=== PATIENT | female | born 1970 | race Caucasian/White ===

== ENCOUNTER 2019-04-26 08:17 | Outpatient (CLI) | payer OTHER, SELFPAY ==
--- NOTE | ~2019-04-26 | CT_ITS ---
EXAMINATION: CT abdomen pelvis w con DATE: 04/26/2019 08:56 INDICATION: Colon cancer. TECHNIQUE: Computed tomography (CT) of the abdomen and pelvis was performed with 100 cc Omnipaque 350 intravenous contrast. The dose-length product was 1056.86 mGy-cm. Automated exposure control and ite rative reconstruction technique were employed. COMPARISON: Comparison to multiple prior studies sequentially, with oldest reviewed study dated 09/16. FINDINGS: Lung bases are unremarkable. Heart size normal. No pleural or pericardial effusion. No significant vascular abnormality. No lymphadenopathy. The liver, spleen, pancreas, adrenal glands and kidneys are unremarkable. There is an umbilical herni a containing nonobstructed bowel. Status post right hemicolectomy. No bowel obstruction. No focal bow el masses are identified. Colonic diverticulosis without diverticulitis. No abnormal pelvic masses or fluid collections. Small bone island in the right sacrum. No new lytic or blastic lesions. IMPRESSION: 1. Postoperative changes consistent with right hemicolectomy without evidence for residual/recurrent malignancy. 2: Widemouth umbilical hernia containing nonobstructed bowel. Reviewed, dictated and finalized at location A. [employer]ET[employer] WORKER IMPRESSION: 1. Postoperative changes consistent with right hemicolectomy without evidence f or residual/recurrent malignancy. 2: Widemouth umbilical hernia containing nonobstructed bowel.
== END 2019-04-26 08:18 | disposition home or self-care (01) ==
LOC: ANHIMG 08:18
PROVIDERS: PCP Internal Medicine; Visit Provider Internal Medicine Hematology & Oncology
DX: C18.2 Malignant neoplasm of ascending colon (principal); Z90.49 Acquired absence of other specified parts of digestive tract; K42.9 Umbilical hernia without obstruction or gangrene
CPT/HCPCS: 74177; Q9967

== ENCOUNTER 2019-08-26 15:50 | Outpatient (CLI) | payer OTHER, SELFPAY ==
[2019-08-26 16:11] LABS: Basophils Absolute Auto 0.1 K/mm3 (0.0-0.1); Eosinophils Absolute Auto 0.6 K/mm3 (0-0.3); Eosinophils Percent Auto 7.5 % (0-4.4); Hematocrit 42.1 % (37.0-47.0); Hemoglobin 13.7 g/dL (12.0-15.0); Immature Granulocyte Absolute 0.01 K/mm3 (0.00-0.031); Immature Granulocyte Percent A 0.1 % (0-0.5); Lymphocytes Absolute Auto 2.09 K/mm3 (0.9-3.2); Lymphocytes Percent Auto 25.7 % (18.3-44.2); Mean Corpuscular HGB Conc 32.5 g/dl (32-36); Mean Corpuscular Hemoglobin 29.7 pg (26-34); Mean Corpuscular Volume 91.1 fl (80-100); Mean Platelet Volume 10.2 fl (7.4-10.4); Monocytes Absolute Auto 0.8 K/mm3 (0.1-0.6); Monocytes Percent Auto 9.2 % (2.6-8.5); Neutrophils Absolute Auto 4.6 K/mm3 (1.3-6.7); Neutrophils Percent Auto 56.5 % (45.5-73.1); Platelet Count Result 230 k/mm3 (150-375); Red Blood Count 4.62 M/mm3 (4.2-5.4); Red Cell Distribution Width 13.1 % (11.5-14.5); White Blood Count 8.1 K/mm3 (4.5-10.0)
[2019-08-26 16:46] LABS: Alanine Aminotransferase 37 U/L (4-35); Albumin Level 4.7 g/dL (3.5-5.1); Alkaline Phosphatase 98 U/L (38-126); Aspartate Amino Transferase 41 U/L (14-36); Bilirubin,Total 0.4 mg/dL (0.2-1.3); Blood Urea Nitrogen 18 mg/dL (7-17); Calcium 9.6 mg/dL (8.4-10.2); Carbon Dioxide 29 mmol/L (22-30); Chloride 101 mmol/L (98-107); Estimated Glomerular Filt Rate > 60; Glucose 104 mg/dL (65-105); Potassium 4.6 mmol/L (3.4-5.0); Sodium 137 mmol/L (137-145)
[2019-08-26 17:17] LABS: Carcinoembryonic Antigen 3.5 ng/mL (0.0-3.0)
== END 2019-08-26 15:51 | disposition home or self-care (01) ==
LOC: ANHLAB 15:52
PROVIDERS: Visit Provider Internal Medicine Hematology & Oncology
DX: C18.2 Malignant neoplasm of ascending colon (principal)
CPT/HCPCS: 36415; 80053; 82378; 85025

== ENCOUNTER 2019-09-13 08:01 | Outpatient (CLI) | payer OTHER, SELFPAY ==
--- NOTE | ~2019-09-13 | MM_ITS ---
EXAMINATION: MM screening [place] BI w thomas HISTORY: Screening mammogram TECHNIQUE: Craniocaudal and mediolateral oblique 3-D tomosynthesis images were obtained and synthetic 2-D images were generated. CAD analysis was submitted and interpreted. COMPARISON: 07/20/2018 BREAST PARENCHYMAL COMPOSITION: The breasts are heterogeneously dense, which may obscure small masses . FINDINGS: RIGHT BREAST: An asymmetry is present in the anterior third of the breast 3 cm from the nipple on the mediolateral oblique view (tomosynthesis image 53/97). There is a partially imaged Port-A-Cath which has been inserted on the right. LEFT BREAST: There is no evidence of suspicious mass, calcification, or architectural distortion to s uggest malignancy. There has been no significant interval change. IMPRESSION: 1. Right breast asymmetry on the mediolateral oblique view. 2. Additional mammographic views and possible breast ultrasound are recommended. BI-RADS Category 0: Incomplete: Needs additional imaging evaluation. Reviewed, dictated and finalized at location A. IMPRESSION: 1. Right breast asymmetry on the mediolateral oblique view. 2. Additional mammographic views and possible breast ultrasound are recommended . BI-RADS Category 0: Incomplete: Needs additional imaging evaluation.
== END 2019-09-13 08:02 | disposition home or self-care (01) ==
LOC: ANHIMG 08:03
PROVIDERS: PCP Advanced Practice Midwife; Visit Provider Advanced Practice Midwife
DX: Z12.31 Encounter for screening mammogram for malignant neoplasm of breast (principal); R92.8 Other abnormal and inconclusive findings on diagnostic imaging of breast
CPT/HCPCS: 77063; 77067

== ENCOUNTER 2019-10-04 13:07 | Outpatient (CLI) | payer OTHER, SELFPAY ==
--- NOTE | ~2019-10-04 | MMUS_ITS ---
EXAMINATION: MM diagnostic mammo unilat RT, US breast RT complete HISTORY: Mammographic asymmetry reported in anterior third of right breast 3 cm from nipple on 020 MLO screening view TECHNIQUE: Additional 3-D tomosynthesis images of the right breast were performed and synthetic 2-D i mages were generated. CAD analysis was submitted and interpreted. High resolution complete right [address] st ultrasound was performed. COMPARISON: 09/13/2019 bilateral digital screening mammogram 07/20/2018 bilateral digital screening mammogram FINDINGS: MAMMOGRAPHIC FINDINGS: Numerous punctate benign-appearing microcalcifications are noted. No suspicious mass or architectural distortion is evident. The heterogeneous dense stroma may obscure a mass however. ULTRASOUND: 1:00 4 cm from nipple: 2 x 3.3 mm parallel circumscribed sonolucency, likely a small cyst or other be nign process. 2:00 1 cm from nipple: 2.6 x 1.6 x 3.0 mm sonolucency or hypoechoic lesion without internal vasculari ty or posterior shadowing, likely benign 3:00 5 cm from nipple: Parallel circumscribed 5.0 x 7.8 x 2.7 mm sonolucency with through transmissio n posterior enhancement, consistent with small cyst 7:00 4 cm from nipple: 4.8 x 3.6 x 4.3 mm simple cyst with through transmission and posterior enhance ment 9:00 5 cm from nipple: 4.2 x 2.8 x 3.4 mm simple cyst with through transmission and posterior enhance ment No suspicious mass or shadowing is evident. IMPRESSION: 1. Benign findings 2. Routine annual mammographic screening is recommended BI-RADS Category 2: Benign finding(s). Reviewed, dictated and finalized at location A. IMPRESSION: 1. Benign findings 2. Routine annual mammographic screening is recommended BI-RADS Category 2: Benign finding(s).
== END 2019-10-04 13:08 | disposition home or self-care (01) ==
PROVIDERS: PCP Advanced Practice Midwife; Visit Provider Advanced Practice Midwife
DX: R92.8 Other abnormal and inconclusive findings on diagnostic imaging of breast (principal)
CPT/HCPCS: 76641; 77065

== ENCOUNTER 2019-11-22 06:45 | Outpatient (CLI) | payer OTHER, SELFPAY ==
--- NOTE | ~2019-11-22 | CT_ITS ---
EXAMINATION: CT abdomen pelvis w con DATE: 11/22/2019 07:33 INDICATION: Colon cancer. Six-month follow-up. TECHNIQUE: Computed tomography (CT) of the abdomen and pelvis was performed with 100 cc Omnipaque 350 intravenous contrast. The dose-length product was 1340.26 mGy-cm. Automated exposure control and ite rative reconstruction technique were employed. COMPARISON: CT dated 04/26/2019 FINDINGS: Lung bases are unremarkable. Heart size is normal. No significant pleural or pericardial ef fusion. No significant vascular abnormality. No lymphadenopathy. Fatty infiltration of the liver. The spleen, adrenal glands and kidneys are unremarkable. Gallbladder is present. There are changes of right hemicolectomy. There is a widemouth ventral hernia at the lev el of the umbilicus containing nonobstructed bowel. No free air or free fluid. Status post hysterecto my. No lytic or sclerotic lesions are seen. No acute osseous abnormality. IMPRESSION: 1. No evidence for residual/recurrent malignancy or metastatic disease. Reviewed, dictated and finalized at location B.
== END 2019-11-22 06:46 | disposition home or self-care (01) ==
PROVIDERS: Visit Provider Internal Medicine Hematology & Oncology
DX: C18.2 Malignant neoplasm of ascending colon (principal)
CPT/HCPCS: 74177; Q9967

== ENCOUNTER 2019-12-07 01:35 | Outpatient (CLI) | payer OTHER, SELFPAY ==
[2019-12-07 17:58] LABS: SARS-CoV-2 RNA PCR Negative
== END 2019-12-07 01:36 | disposition home or self-care (01) ==
LOC: ANHCOVIDDT 01:35
PROVIDERS: Visit Provider Surgery
DX: Z01.812 Encounter for preprocedural laboratory examination (principal); Z20.828 Contact with and (suspected) exposure to other viral communicable diseases
CPT/HCPCS: 87635; C9803; U0003

== ENCOUNTER 2019-12-10 00:50 | Day surgery (SDC) | payer OTHER, SELFPAY ==
[2019-11-26 10:04] VITALS: BMI 38.2
--- NOTE | 2019-12-10 12:08 | PM.HPGS ---
History of Present Illness History of Present Illness Consent: Risks, benefits, and alternatives of removal of a Port-A-Cath have been discussed and questions answered. Patient agrees to proceed with procedure. Chief complaint: Colon Ca Narrative: Lucia Lentz is a 49 year old female who fortunately developed right-sided colon cancer in September of 2017. She had a successful right hemicolectomy at that time. Since this time she has undergone several cycles of FOLFOX chemotherapy it ended on May 31, 2018. She also subsequently had a TAHBSO on October 22, 2018 which pathology showed no endometrial or ovarian tumors. Patient has completed her her need for chemotherapy and is seen at this time for removal of the port that had been placed to be used during crit chemotherapy. Patient did have a colonoscopy in [place] 1-2 months ago with the finding of 1 benign polyp. 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 Patient also had a CT scan of the abdomen pelvis within the last month that showed no signs of metastatic disease. The risks including bleeding or infection have been described to the patient and she is comfortable Having us remove this under local anesthetic. Review of Systems Constitutional: Constitutional: Reports no additional constitutional complaints, Reports fatigue and Denies malaise Eyes: Eyes: Denies change in vision and Denies loss of vision ENT: Reports Normal hearing present, Denies change in voice, Denies dizziness, Denies hoarseness and Denies sore throat Cardiovascular: Cardiovascular: Denies chest pain, Denies leg edema and Denies dyspnea Respiratory: Respiratory: Denies cough, Denies dyspnea and Denies wheezing Gastrointestinal: Gastrointestinal: Denies hematochezia, Denies change in bowel habits and Denies heartburn Genitourinary: Genitourinary: Denies urinary frequency and Denies urinary incontinence Comments: 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 because this is more frequently associated with some female tract cancers the patient did undergo a bilateral subcu for rectum E and total laparoscopic hysterectomy last year. Neurologic: Reports Normal hearing present, Denies confusion, Denies dizziness, Denies loss of vision, Denies memory loss and Denies seizure-like activity Psychiatric: Psychiatric: Denies confusion, Denies depression and Denies memory loss Endocrine: Endocrine: Denies cold intolerance and Reports fatigue Hematologic/Lymphatic: Hematologic/Lymphatic: Denies easy bleeding and Denies easy bruising Allergic/Immunologic: Allergic/Immunologic: Denies wheezing PMFSH Past Medical History Medical History Port-A-Cath in place (2018) Social History Social History Smoking status: Never smoker Alcohol intake: never Meds Home Medications and Allergies Home Medications Medication Instructions Recorded Confirmed Type calcium citrate-vitamin D3 1 tablet PO DAILY 11/26/19 12/10/19 History [Citracal + D Maximum] multivit [id number] 186 1 tablet PO DAILY 11/26/19 12/10/19 History [Hair, Skin and Nails Advanced] multivitamin 1 tablet PO DAILY 11/26/19 12/10/19 History Allergies Allergy/AdvReac Type Severity Reaction Status Date / Time Sulfa (Sulfonamide Allergy Severe LIPS/TONGUE Verified 12/10/19 13:13 Antibiotics) SWELLING Exam Const: General: cooperative, healthy appearing, no acute distress, well developed and alert; No confusion Nutritional Appearance: well nourished Orientation/consciousness: patient oriented x3 and No confusion Limitations: no limitations HENMT: Head: normal to inspection, normocephalic and atraumatic Ears: hearing grossly normal bilaterally General nose exam: Normal external nose present Face and sinus: no edema Mouth: Yes Normal oral and palatal mucosa present and Yes l
[2019-12-10 13:45] VITALS: BP 132/71; PULSE 72; RESP 16; TEMP 37.1; O2SAT 100
--- NOTE | 2019-12-10 14:13 | WPDHPUPDATE1 ---
History and Physical Update Update Date/Time: 12/10/19 14:13 History and Physical has been reviewed, including an updated exam of the patient. There are NO changes in the patient's condition. Risks, benefits, and alternatives of removal of a Port-A-Cath have been discussed and questions answered. Patient agrees to proceed with procedure.
[2019-12-10 14:40] VITALS: BP 148/77; PULSE 77; RESP 16; O2SAT 99
[2019-12-10] MEDS: LIDO 2%/EPINEPHRINE 1:100,000 20 ML VIAL 10 ML INFILTRATE (14:44)
[2019-12-10 14:50] VITALS: BP 130/72; PULSE 71; RESP 16; O2SAT 99
[2019-12-10 15:00] VITALS: BP 136/72; PULSE 78; RESP 16; O2SAT 99
[2019-12-10 15:10] VITALS: BP 133/73; PULSE 84; RESP 16; O2SAT 99
[2019-12-10 15:25] VITALS: BP 151/71; PULSE 78; RESP 16; O2SAT 100
--- NOTE | 2019-12-10 15:47 | P.OP_ITS ---
Procedure Note - Detailed Date of procedure: 12/10/19 Pre-op diagnosis: Colon Ca Indwelling Port-A-Cath Post-op diagnosis: same Procedure performed: Removal of Port-A-Cath Description of procedure: Prior to the procedure the patient was seen in the holding area and the area of proposed surgery was marked. All questions were answered and the patient wished to proceed with removal of the Port-A-Cath. The patient was brought to the operating room and placed supine. The entire right neck, chest, and shoulder were prepped with chlorhexidine. The area was draped off. Time-out was performed confirming patient and site of surgery. Following this a 15 blade knife was used to make incision directly on the scar from the previous port placement. This was done after infiltrating local anesthetic into the area of and inferior to the scar and into the area of the pocket containing the port to some degree using 2% xylocaine with epinephrine. Following this we carefully dissected down to the junction of the port and catheter. Bovie cautery with needle-tip was used to carefully incise the capsule around the port and free up the scar tissue around the junction of the port and catheter. Following this the port was brought up and out of the pocket. Then watching the patient's respirations I carefully removed the catheter in one smooth pull while applying pressure in the lower right neck area at the catheter exit site as the patient was breathing out. Pressure was held for 1 minute. I used Bovie cautery on some the subcutaneous tissues as we waited for good clotting. Again hemostasis was checked in the wound using Bovie cautery for superficial hemostasis in the subcutaneous tissues. Following this closure was obtained with 2 layers. I used buried subcutaneous sutures of 3-0 Vicryl in the subcutaneous layer followed by a running subcuticular closure of 4-0 Monocryl on the skin. Patient tolerated the procedure well. Estimated blood loss was 3 cc Sponge, needle, and instrument counts were correct at the end the procedure and patient was taken to the outpatient recovery area in good condition. Anesthesia: local ( 2% xylocaine with epinephrine) Surgeon: Joce West MD Medical Genetics Director: none Estimated blood loss (mL): 3 Drains: No Packing: No Pathology: none sent Complications: No immediate complications Condition: stable Disposition: other ( outpatient recovery area) Findings: unremarkable port and catheter that were intact.
== END 2019-12-10 16:08 | disposition home or self-care (01) ==
PROVIDERS: Visit Provider Surgery
PROC: (CPT 36589; principal; 2019-12-10 14:00)
DX: Z45.2 Encounter for adjustment and management of vascular access device (principal); Z85.038 Personal history of other malignant neoplasm of large intestine; Z90.49 Acquired absence of other specified parts of digestive tract; Z92.21 Personal history of antineoplastic chemotherapy; Z15.09 Genetic susceptibility to other malignant neoplasm
CPT/HCPCS: 36590

== ENCOUNTER 2020-07-17 07:35 | Outpatient (CLI) | payer OTHER, SELFPAY ==
--- NOTE | ~2020-07-17 | CT_ITS ---
EXAMINATION: CT abdomen pelvis w con DATE: 07/17/2020 08:14 INDICATION: Follow-up colon cancer TECHNIQUE: Computed tomography (CT) of the abdomen and pelvis was performed with 100 mL Omnipaque-350 intravenous contrast. Automated exposure control and iterative reconstruction technique were employe d. The dose-length product was 1371.28 mGy-cm. COMPARISON: None FINDINGS: Lung bases are clear. Heart size is normal. No pericardial or pleural effusion. Liver, gallbladder, s pleen, pancreas, bilateral adrenal glands and kidneys are normal. Postoperative change of prior parti al colectomy at the cecum with ileocolic anastomosis at the orifice of a moderate-sized widemouthed u mbilical hernia. A loop of the ileum immediately proximal to the anastomosis extends into a smaller l obular caudal extension of the umbilical hernia. No bowel obstruction. Bladder is normal. The uterus is not identified and has likely been surgically resected. No pathologically enlarged abdominal or pe lvic lymphadenopathy. 4 mm anterolisthesis L4 on L5 with associated severe bilateral facet osteoarthr itis. IMPRESSION: 1. Postoperative change of the proximal right hemicolectomy for reported colon cancer with no evident residual, recurrent or metastatic disease. 2. Moderate-sized widemouth umbilical hernia containing a loop of nonobstructed small bowel. Reviewed, dictated and finalized at location A.
[2020-07-17 08:06] LABS: Estimated Glomerular Filt Rate > 60
== END 2020-07-17 07:36 | disposition home or self-care (01) ==
PROVIDERS: Visit Provider Internal Medicine Hematology & Oncology
DX: C18.2 Malignant neoplasm of ascending colon (principal); K42.9 Umbilical hernia without obstruction or gangrene
CPT/HCPCS: 74177; Q9967

== ENCOUNTER 2021-07-09 09:28 | Outpatient (CLI) | payer OTHER, SELFPAY ==
--- NOTE | ~2021-07-09 | CT_ITS ---
EXAMINATION: CT abdomen pelvis w con INDICATION: History of colon cancer TECHNIQUE: Computed tomographic images of the abdomen and pelvis were obtained after the administrati on of 100 cc of Omnipaque 350 intravenous contrast. The dose-length product (DLP) was 1462.49 mGy-cm. Automated exposure control and iterative reconstruction technique were employed. COMPARISON: 07/17/2020 FINDINGS: Minimal dependent atelectasis is present in the lung bases. The heart size is normal. The l iver, spleen, pancreas, gallbladder, and adrenal glands are normal. The kidneys are unremarkable. The re are changes of partial colectomy. No pathologically enlarged abdominal or pelvic lymph nodes are i dentified. There is no free intraperitoneal gas or evidence of bowel obstruction. There is a moderate volume of colonic stool. Umbilical and infraumbilical hernias are again seen, not significantly shabazz ged. The infraumbilical hernia contains a short segment of the nonobstructed terminal ileum. There is mild lumbar spondylosis. IMPRESSION: 1. Changes of partial colectomy without residual, recurrent, or metastatic disease. 2. Unchanged umbilical and infraumbilical hernias containing a short segment of nonobstructed termina l ileum. Reviewed, dictated and finalized at location B. IMPRESSION: 1. Changes of partial colectomy without residual, recurrent, or metastatic dise ase. 2. Unchanged umbilical and infraumbilical hernias containing a short segment of nonobstructed terminal ileum.
== END 2021-07-09 09:29 | disposition home or self-care (01) ==
PROVIDERS: Visit Provider Internal Medicine Hematology & Oncology
DX: C18.2 Malignant neoplasm of ascending colon (principal); K42.9 Umbilical hernia without obstruction or gangrene
CPT/HCPCS: 74177; Q9967

== ENCOUNTER 2022-07-08 07:39 | Outpatient (CLI) | payer OTHER, SELFPAY ==
--- NOTE | ~2022-07-08 | CT_ITS ---
EXAMINATION: CT abdomen pelvis w con DATE: 07/08/2022 08:09 INDICATION: Malignant neoplasm of the right: TECHNIQUE: Computed tomography (CT) of the abdomen and pelvis was performed with 100 mL Omnipaque-350 intravenous contrast. Automated exposure control and iterative reconstruction technique were employe d. The dose-length product was 1365.47 mGy-cm. COMPARISON: 07/09/2021 FINDINGS: Lung bases are clear. Heart size is normal. No pericardial or pleural effusion. Liver, gallbladder, s pleen, pancreas, bilateral adrenal glands and kidneys are normal. Status post right hemicolectomy wit h ileocolic anastomosis. The anastomosis and short segment of the immediately more proximal small bow el extends into a moderate-sized infraumbilical ventral hernia as well as extending partially into a more cephalad smaller wide mouthed umbilical hernia. The orifice to the more caudal hernia measures 4 .0 x 3.8 cm. No bowel obstruction. Bladder is normal. The uterus is not identified and has likely bee n surgically resected. No free intraperitoneal gas or fluid. No pathologically enlarged abdominal or pelvic lymphadenopathy. Mild thoracolumbar dextrocurvature with mild spondylosis. 5 mm anterolisthesi s L4 on L5. IMPRESSION: 1. Status post right hemicolectomy consistent with reported history of prior colon cancer. No evident residual, recurrent or metastatic disease. 2. No interval change in umbilical and infraumbilical ventral hernias containing a short segment of n onobstructed terminal ileum. Reviewed, dictated and finalized at location B. IMPRESSION: 1. Status post right hemicolectomy consistent with reported history of prior co bucky cancer. No evident residual, recurrent or metastatic disease. 2. No interval change in umbilical and infraumbilical ventral hernias containin g a short segment of nonobstructed terminal ileum.
[2022-07-08 08:04] LABS: Estimated Glomerular Filt Rate > 60
== END 2022-07-08 07:40 | disposition home or self-care (01) ==
LOC: ANHIMG 07:48
PROVIDERS: Visit Provider Internal Medicine Hematology & Oncology
DX: C18.9 Malignant neoplasm of colon, unspecified (principal)
CPT/HCPCS: 74177; Q9967

== ENCOUNTER 2023-01-13 10:11 | Outpatient (CLI) | payer OTHER, SELFPAY ==
[2023-01-13 10:28] LABS: Basophils Absolute Auto 0.1 K/mm3 (0.0-0.1); Basophils Percent Auto 0.8 % (0.2-1.2); Eosinophils Absolute Auto 0.2 K/mm3 (0-0.3); Eosinophils Percent Auto 2.1 % (0-4.4); Hematocrit 40.7 % (37.0-47.0); Hemoglobin 13.2 g/dL (12.0-15.0); Immature Granulocyte Absolute 0.02 K/mm3 (0.00-0.031); Immature Granulocyte Percent A 0.3 % (0-0.5); Lymphocytes Absolute Auto 1.53 K/mm3 (0.9-3.2); Mean Corpuscular HGB Conc 32.4 g/dl (32-36); Mean Corpuscular Hemoglobin 28.6 pg (26-34); Mean Corpuscular Volume 88.1 fl (80-100); Mean Platelet Volume 9.8 fl (7.4-10.4); Monocytes Absolute Auto 0.7 K/mm3 (0.1-0.6); Monocytes Percent Auto 9.1 % (2.6-8.5); Neutrophils Absolute Auto 4.9 K/mm3 (1.3-6.7); Neutrophils Percent Auto 66.7 % (45.5-73.1); Platelet Count Result 252 k/mm3 (150-375); Red Blood Count 4.62 M/mm3 (4.2-5.4); Red Cell Distribution Width 13.2 % (11.5-14.5); White Blood Count 7.3 K/mm3 (4.5-10.0)
[2023-01-13 10:58] LABS: Alanine Aminotransferase 35 U/L (6-35); Albumin Level 4.7 g/dL (3.5-5.1); Alkaline Phosphatase 84 U/L (38-126); Anion Gap 9 mmol/L (8-16); Aspartate Amino Transferase 39 U/L (14-36); Bilirubin,Total 0.7 mg/dL (0.2-1.3); Blood Urea Nitrogen 17 mg/dL (7-17); Calcium 9.7 mg/dL (8.4-10.2); Carbon Dioxide 31 mmol/L (22-30); Chloride 103 mmol/L (98-107); Estimated Glomerular Filt Rate > 60; Glucose 119 mg/dL (65-110); Potassium 4.3 mmol/L (3.4-5.0); Sodium 143 mmol/L (137-145)
[2023-01-13 11:27] LABS: Carcinoembryonic Antigen 2.2 ng/mL (0.0-3.0)
== END 2023-01-13 10:12 | disposition home or self-care (01) ==
LOC: ANHLAB 10:13
PROVIDERS: Visit Provider Internal Medicine Hematology & Oncology
DX: C18.2 Malignant neoplasm of ascending colon (principal)
CPT/HCPCS: 36415; 80053; 82378; 85025

== ENCOUNTER 2023-07-14 08:03 | Outpatient (CLI) | payer OTHER, SELFPAY ==
--- NOTE | ~2023-07-14 | CT_ITS ---
CT of the Abdomen and Pelvis: Indication: Colon cancer Technique: 2.5 mm axial scans were obtained through the abdomen and pelvis following intravenous adm inistration of 100 cc of Omnipaque 350. Dose reduction technique was used on this scan by utilizing a utomated exposure control and iterative reconstruction technique. The dose-length product (DLP) was 1 481.07 mGy-cm. COMPARISON: 07/08/2022 Findings: Scans through the lung bases are unremarkable. The liver, spleen, pancreas, gallbladder, adrenals and kidneys are within normal limits. No evidence of aortic aneurysm. No lymphadenopathy. There is evidence of prior partial right colectomy. There is a ventral/umbilical hernia extending jus t right of midline, containing the proximal most large bowel and distal small bowel, as well as the a roxanna of enterocolonic anastomosis. No bowel obstruction or bowel wall thickening evident. There is add itional laxity and bulging of the anterior abdominal wall above the umbilicus, without cullen bowel in volvement in this region. Images through the pelvis were performed. Urinary bladder unremarkable. No pelvic mass seen. No ascit es. Impression: No evidence for active malignancy or metastatic disease. No change from prior exam. Stable ventral/umbilical hernia containing distal small bowel and proximal large bowel, as well as th e enterocolonic anastomosis region. No bowel obstruction or bowel wall thickening. Reviewed, dictated and finalized at location . Impression: No evidence for active malignancy or metastatic disease. No change from prior e xam. Stable ventral/umbilical hernia containing distal small bowel and proximal larg e bowel, as well as the enterocolonic anastomosis region. No bowel obstruction or bowel wall thickening.
[2023-07-14 08:29] LABS: Estimated Glomerular Filt Rate > 60
== END 2023-07-14 08:04 | disposition home or self-care (01) ==
LOC: ANHIMG 08:06
PROVIDERS: Visit Provider Internal Medicine Hematology & Oncology
DX: K42.9 Umbilical hernia without obstruction or gangrene (principal); C18.2 Malignant neoplasm of ascending colon
CPT/HCPCS: 74177; Q9967

== ENCOUNTER 2024-01-22 15:49 | Outpatient (CLI) | payer OTHER, SELFPAY ==
[2024-01-22 16:01] LABS: Basophils Absolute Auto 0.1 K/mm3 (0.0-0.1); Basophils Percent Auto 0.9 % (0.2-1.2); Eosinophils Absolute Auto 0.2 K/mm3 (0-0.3); Eosinophils Percent Auto 2.8 % (0-4.4); Hematocrit 39.7 % (37.0-47.0); Hemoglobin 12.7 g/dL (12.0-15.0); Immature Granulocyte Absolute 0.02 K/mm3 (0.00-0.031); Immature Granulocyte Percent A 0.2 % (0-0.5); Lymphocytes Absolute Auto 1.89 K/mm3 (0.9-3.2); Lymphocytes Percent Auto 22.1 % (18.3-44.2); Mean Corpuscular Hemoglobin 28.3 pg (26-34); Mean Corpuscular Volume 88.6 fl (80-100); Mean Platelet Volume 10.3 fl (7.4-10.4); Monocytes Absolute Auto 0.7 K/mm3 (0.1-0.6); Monocytes Percent Auto 7.6 % (2.6-8.5); Neutrophils Absolute Auto 5.7 K/mm3 (1.3-6.7); Neutrophils Percent Auto 66.4 % (45.5-73.1); Platelet Count Result 244 k/mm3 (150-375); Red Blood Count 4.48 M/mm3 (4.2-5.4); Red Cell Distribution Width 12.9 % (11.5-14.5); White Blood Count 8.5 K/mm3 (4.5-10.0)
[2024-01-22 16:50] LABS: Alanine Aminotransferase 32 U/L (6-35); Albumin Level 4.5 g/dL (3.5-5.1); Alkaline Phosphatase 77 U/L (38-126); Anion Gap 8 mmol/L (4-12); Aspartate Amino Transferase 44 U/L (14-36); Bilirubin,Total 0.4 mg/dL (0.2-1.3); Blood Urea Nitrogen 20 mg/dL (7-17); Calcium 9.6 mg/dL (8.4-10.2); Carbon Dioxide 30 mmol/L (22-30); Chloride 100 mmol/L (98-107); Estimated Glomerular Filt Rate > 60; Glucose 182 mg/dL (65-110); Potassium 4.3 mmol/L (3.4-5.0); Sodium 138 mmol/L (137-145)
[2024-01-22 17:22] LABS: Carcinoembryonic Antigen 2.9 ng/mL (0.0-3.0)
== END 2024-01-22 15:50 | disposition home or self-care (01) ==
LOC: ANHLAB 15:50
PROVIDERS: Visit Provider Internal Medicine Hematology & Oncology
DX: C18.2 Malignant neoplasm of ascending colon (principal)
CPT/HCPCS: 36415; 80053; 82378; 85025

== ENCOUNTER 2024-07-12 08:31 | Outpatient (CLI) | payer OTHER, SELFPAY ==
--- NOTE | ~2024-07-12 | CT_ITS ---
Non-contrast CT scan of the Abdomen and Pelvis Clinical indication: Colon cancer Technique: 2.5 mm axial scans were obtained through the abdomen and pelvis without intravenous or or al contrast. Dose reduction technique was used on this scan by utilizing automated exposure control a nd iterative reconstruction technique. The dose-length product (DLP) was 1274.81 mGy-cm. COMPARISON: 07/14/2023 Findings: Images through the lung bases reveal no abnormalities. There is no evidence of renal or ureteral calculi. The kidneys and the ureters are nondilated. Probable diffuse fatty infiltration of liver. The spleen, pancreas, gallbladder, and adrenals appear normal. There is no aortic aneurysm. There is a large ventral hernia just right of midline at the level of the umbilicus, containing very proximal colon and distal small bowel loops as well as the enterocolonic anastomosis, as well as mese nteric fat. No bowel obstruction or bowel wall thickening. Images through the pelvis were performed. There is no evidence of ascites or lymphadenopathy. Urinary bladder unremarkable. No pelvic mass seen. Status post hysterectomy. Impression: Large ventral hernia just right of midline of the umbilicus containing distal small bowel and proxima l large bowel as well as the enterocolonic anastomosis. No bowel obstruction or bowel wall thickening . This is unchanged from prior exam. No evidence for active malignancy or metastatic disease. Diffuse hepatic steatosis. Reviewed, dictated and finalized at [facility]. Impression: Large ventral hernia just right of midline of the umbilicus containing distal s mall bowel and proximal large bowel as well as the enterocolonic anastomosis. N o bowel obstruction or bowel wall thickening. This is unchanged from prior exam . No evidence for active malignancy or metastatic disease. Diffuse hepatic steatosis.
== END 2024-07-12 08:32 | disposition home or self-care (01) ==
PROVIDERS: Visit Provider Internal Medicine Hematology & Oncology
DX: C18.2 Malignant neoplasm of ascending colon (principal); K43.9 Ventral hernia without obstruction or gangrene; K76.0 Fatty (change of) liver, not elsewhere classified
CPT/HCPCS: 74176

== ENCOUNTER 2024-07-15 15:48 | Outpatient (CLI) | payer OTHER, SELFPAY ==
--- OUTSIDE RECORDS SUMMARY | 2024-07-15 15:51 | XMS_ITS | Encounter Summary ---
Author Organization [facility] Address [address] [place] [address] Care Team Providers Care Resin Shaver Name Role Phone Beni Wen MD Primary Care Provider [phone] Encounter Details Date Type Department Care Team (Latest Contact Info) Description 07/09/2024 Results Follow-Up [facility] Internal Medicine [place] [facility] [address] [place] [address] Kasia Magallanes [place] [address] [address] ECHOCARDIOGRAM W/ CONTRAST AGENT Social History Tobacco Use Types Packs/Day Years Used Date Smoking Tobacco: Never Smokeless Tobacco: Never Alcohol Use Standard Drinks/Week Comments No 0 (1 standard drink = 0.6 oz pur e alcohol) Feeling Safe Answer Date Recorded Fear of Current or Ex-Partner Not on file Emotionally Abused Not on file 11/10/2023 Within the last year, have y ou been kicked, hit, slapped, or otherwise physically hurt by your partner or ex-partner? No 11/10/2023 Sexually Abused Not on file 11/10/2023 Social Connections Answer Date Recorded In a typical week, how many times do you talk on the phone with family, friends, or neighbors? Once a week 08/16/2018 How often do you get together with friends or re latives? Once a week 08/16/2018 How often do you attend sabianist or synagogue serv ices? Never 08/16/2018 Do you belong to any clubs o r organizations such as sabianist groups, unions, fraternal or athletic groups, or school groups? No 08/16/2018 How often do you attend meet ings of the clubs or organizations you belong to? Never 08/16/2018 Are you , , di vorced, , never , or living with a partner? 08/16/2018 Financial Resource Strain Answer Date R ecorded How hard is it for you to pa y for the very basics like food, housing, medical care, and heating? Not hard at all 08/16/2018 Food Insecurity Answer Date Recorded Within the past 12 months, y ou worried that your food would run out before you got the money to buy more. Never true 08/17/19 19 Within the past 12 months, t he food you bought just didn't last and you didn't have money to get more. Never true 08/16/2018 Feeling Safe Answer Date Recorded Are you in a relationship wi th someone who hurts you emotionally and/or physically? 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 documented in this encounter Plan of Treatment Upcoming Encounters Date Type Department Care Team (Late st Contact Info) Description 07/19/2024 11:15 AM CDT Office Visit [facility] Oncology and Hematology - [place] [address] [address] Ziyad Meade MD [address] [facility] [address] [place] [phone] 11/19/2024 1:00 PM CDT Appointment [facility] Jeanine Walsh [address] [place] [address] [place] [address] [facility] [address] [place] [address] 11/19/2024 2:00 PM CDT Office Visit [facility] Breast Surgery Jeanine Walsh [address] [facility] [address] [place] [address] [place] [address] [facility] [address] [place] [address] 11/22/2024 8:30 AM CDT Office Visit [facility] Internal Medicine [place] [facility] [address] [facility] [place] [address] Beni Wen MD [address] [address] documented as of this encounter Visit Diagnoses Not on filedocumented in this encounter Care Teams Resin Shaver Relationship Specialty Start Date End Date Beni Wen MD [address] [facility] [address] [place] [address] PCP - General Internal Medicine 09/18/20 documented as of this encounter
--- OUTSIDE RECORDS SUMMARY | 2024-07-15 15:51 | XMS_ITS | Encounter Summary ---
Author Organization [facility] Address [address] [place] [address] Care Team Providers Care Nutrition Services Aide Name Role Phone Beni Wen MD Primary Care Provider [phone] Encounter Details Date Type Department Care Team (Late st Contact Info) Description 06/24/2024 Results Follow-Up [facility] Internal Medicine [place] [facility] [address] [place] [address] Kasia Magallanes [place] [address] [address] HEMOGLOBIN A1C Social History Tobacco Use Types Packs/Day Years [...] week 08/16/2018 How often do you attend denominational or latter day serv ices? Never 08/16/2018 Do you belong to any clubs o r organizations such as denominational groups, unions, fraternal or athletic groups, or [...] Encounter Note - Kasia Magallanes PA - 06/24/2024 8:03 AM CDT Contact patient regarding result. documented in this encounter Plan of Treatment Upcoming Encounters Date Type Department Care Team (Late st Contact Info) Description 07/19/2024 11:15 AM CDT Office Visit [facility] Oncology and Hematology - [place] [address] [place] [address] Ziyad Meade MD [address] [address] 11/19/2024 1:00 PM CDT Appointment [facility] Jeanine Walsh [address] [place] [phone] [place] [address] [facility] [address] [place] [address] 11/19/2024 2:00 PM CDT Office Visit [facility] Breast Surgery Jeanine Walsh [address] [facility] [facility] [address] [place] [address] [place] [address] [facility] [address] [place] [address] 11/22/2024 8:30 AM CDT Office Visit [facility] Internal Medicine [place] [facility] [address] [place] [address] Beni Wen MD [address] [address] documented as of this encounter Visit Diagnoses Not on filedocumented in this encounter Care Teams Nutrition Services Aide Relationship Specialty Start Date End Date Beni Wen MD [address] [address] PCP - General Internal Medicine 09/18/20 documented as of this encounter
--- OUTSIDE RECORDS SUMMARY | 2024-07-15 15:51 | XMS_ITS | Clinical Summary ---
Author Organization [facility] Address [address], [address] [address] Phone Care Team Providers Care Rim Technician Name Role Phone Unavailable Primary Care Provider Unavailabl e Social History Tobacco Use Types Packs/Day Years Used Date Smoking Tobacco: Never Assessed Comments Unknown Sex and Gender Information Value Date Recorded Sex Assigned at Not on file Legal Sex Female 3:51 PM CDT Gender Identity Not on file Sexual Orientation Not on file Plan of Treatment Health Maintenance Due Date Last Done Comments Hepatitis C Virus (HCV) Screening 1970 TdaP Immunization 1970 Hepatitis B Immunization (1 of 3 - 19+ 3-dose series) 05/07/1990 Pap Smear 05/07/1992 Cervical Cancer Screening (CCS) 05/07/2001 HPV/Cotest 05/07/2001 Colonoscopy 05/07/2016 Colorectal Cancer Screening 05/07/2016 Cologuard 05/07/2021 Immunochemical Fecal Occult Blood 05/07/2021 Mammogram 05/07/2021 Pneumococcal Immunization (5 0+ years) (1 of 1 - PCV) 05/07/2021 Zoster Immunization (1 of 2) 05/07/2021 Influenza Immunization (#1) 2023 SARS-COV-2 Immunization ( - 2023- season) 2023 Respiratory Syncytial Virus (RSV) Immunization (Adult) (1 - 1-dose 75+ series) 05/07/2046 Meningococcal Immunization (ACWY) Aged Out No longer eligible based on patient's age to complete this topic Pneumococcal Immunization Combined Aged Out No longer eligible based on patient's age to complete this topic Rotavirus Immunization Aged Out No lo nger eligible based on patient's age to complete this topic
--- OUTSIDE RECORDS SUMMARY | 2024-07-15 15:51 | XMS_ITS | Clinical Summary ---
Author Organization [facility] Address [address] [place] [address] Care Team Providers Care Reservations Sales Agent Name Role Phone Beni Wen MD Primary Care Provider [phone] Allergies Active Allergy Reactions Criticality Noted Date Comments Iodine Rash Low 10/23/2017 Sulfa (Sulfonamide Antibiotics) Swelling Low 10/05 Medications multivitamin (DAILY-ASHIA) tablet Take 1 Tablet by mouth every other day. Active calcium citrate-vitamin D3 (CITRACAL WITH VIT D) 200 mg-6.25 mcg (250 unit) Tablet Take by mouth. Active VIT B COMP NO.2-YTCZS-N-BI OTIN ORAL Take by mouth. Hair, Skin, Nails Active triamcinolone acetonide (KENALOG) 0.1 % Cream Apply to affected area 2 times daily as needed (Eczema). 1 Gram 1 Active omeprazole (PriLOSEC) 40 mg Capsule, Delayed Release(E.C.)In dications:Histo ry of gastric ulcer Take 1 Capsule (40 mg) by mouth daily. 90 Capsule 3 5 Active metFORMIN (GLUCOPHAGE) 500 mg tabletIndicatio ns:Prediabetes Take 1 Tablet (500 mg) by mouth daily with breakfast. 90 Tablet 3 5 Active losartan (COZAAR) 25 mg tablet Take 1 Tablet (25 mg) by mouth daily. 100 Tablet 3 5 Active losartan (COZAAR) 25 mg tablet Take 1 Tablet (25 mg) by mouth daily. 100 Tablet 3 5 06/22/19 25 Discontinu ed(Reorder ) Active Problems Patient Care Coordination No te Formatting of this note migh t be different from the original. Patient Care Team: Beni Wen MD as PCP - General (Internal Medicine) Jaspreet Longoria NP (Nurse Practitioner Adult Health) Jeanine Donis CNM (Butter Melter) Clotilde Quezada MD (Surgery) Problem Noted Date Diagnosed Date Sebaceous cyst of breast, left 12/27/2022 History of gastric ulcer 06/10/2021 Eczema 12/11/2020 Overview (06/12/2021): Obesity (BMI 35.0-39.9 without comorbidity) 10/2020 Prediabetes 06/19/2020 Overview (12/11/2020): Started on Metformin in November 2019 At high risk for breast cancer 05/10/2020 Dense breast tissue on mammogram 10/29/2019 Status post hysterectomy with oophorectomy 11/06 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 The patient underwent the [facility] my risk genetic testing for hereditary cancer syndromes due to a personal history of colon cancer diagnosed under age 51. 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 The patient's genetic testing evaluated her for Dewey syndrome, HBOC, as well as most other common hereditary cancer syndromes. History of colon cancer 11/08/2017 Overview (12/11/2020): -Diagnosed with colon cancer at age 47. 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 - FOLFOX 11/28/18-05/23/18. Resolved Problems Problem Noted Date Diagnosed Date Resolved Date Diffuse cystic mastopathy of both breasts 10/29/2019 12/11/2020 Cyst, breast, right 10/29/2019 12/12/19 Genetic susceptibility to endometrial cancer 9 12/11/2020 Genetic susceptibility to ovarian cancer 07/18/2018 12/11/2020 Genetic susceptibility to cancer 07/18/2018 12/11/2020 Family history of cancer 06/15/201810/2020 Genetic testing 06/15/2018 12/11/2020 Encounters Date Type Department Care Team Description 07/12/2024 Orders Only [facility] Oncology and Hematology - [address] [facility] [address] [place] [address] Ziyad Meade MD 07/09/2024 External Device Data STL ABSTRACTION Provider, Abstract 07/09/2024 Results Follow-Up [facility] Internal Medicine [place] [address] [facility] [address] [place] [phone] Kasia Magallanes PA ECHOCARDIOGRAM W/ CONTRAST AGENT 07/05/2024 10:55 AM CDT - 07/05/2024 11:59 PM CDT Hospital Encounter [facility]iology [facility] [address] [place] [address] Kasia Magallanes PA Discharge Disposition: Home or Self Care 06/24/2024 Results Follow-Up [facility] Internal Medicine [place] [address] [address] [facility] [address] [place] [phone] Kasia Magallanes PA HEMOGLOBIN A1C 05/24/2024 8:30 AM CDT Office Visit [facility] Medicine [place] [address] [address] [facility] [address] [place] [phone] Kasia Magallanes PA Family history of [place] (myocardial infarction) (Primary Dx); Prediabetes; History of gastric ulcer 05/22/2024 External Device Data STL ABSTRACTION Provider, Abstract 05/14/2024 External Device Data STL ABSTRACTION Provider, Abstract 05/14/2024 External Device Data STL ABSTRACTION Provider, Abstract 05/11/2024 External Device Data STL ABSTRACTION Provider, Abstract 05/10/2024 8:05 AM MANAGER CHANGE - 05/10/2024 11:59 PM MANAGER CHANGE Hospital Encounter [facility] [address] [address] [address] [place] [phone] Clotilde Quezada MD Discharge Disposition: Home or Self Care 05/10/2024 External Device Data STL ABSTRACTION Provider, Abstract 05/10/2024 Telephone [facility] Breast Surgery [address] [address] [place] [phone] Ayana Wilson operating room tech Results 04/30/2024 External Device Data STL ABSTRACTION Provider, Abstract 04/30/2024 External Device Data STL ABSTRACTION Provider, Abstract 04/23/2024 External Device Data STL ABSTRACTION Provider, Abstract from Last 3 Months Immunizations Immunization Administration Dates Next Due (ADACEL/BOOSTRIX)(10 YR UP) TDAP VACCINE, 0.5ML, IM 12/11/2020 (BLAISE) COVID-19 VACCINE - EMERGENCY USE AUTHORIZATION, AD26,COV2S(PF) 0.5 ML IM SUSP 05/09/2020 (PFIZER TOÑITO)(12 YR UP PRIMA RY SERIES) COVID-19 VACCINE - EMERGENCY USE AUTHORIZATION, MRNA, TOÑITO(PF) 30 MCG/0.3 ML IM SUSP 09/03/2022 (SHINGRIX)(50 YRS UP) ZOSTER VACCINE RECOMBINANT, 0.5 ML, IM 11/29/2022,09/03/2022 (SPIKEVAX) (12 YRS UP PRIMAR Y SERIES) COVID-19 VACCINE - MRNA-1273(PF) 100 MCG/0.5 ML IM SUSP 04/10/2021 INFLUENZA VACCINE QUADRIVALE NT 6 MOS UP PF IM 11/15/2019,12/07/2018,11/11/2017 INFLUENZA VACCINE RECOMBINAN T TRIVALENT, (18 YR UP), 0.5ML (PF), IM 11/21/2023 Influenza Seasonal Unspecifi ed Formulation IM 11/05/2022,11/14/2020 Family History Medical History Relation Name Comments Healthy Brother C.W. Healthy Daughter Jojo Other Father Casey PE and infectio n Other Maternal Aunt 1 COPD Healthy Maternal Aunt 2 Healthy Maternal Aunt 3 Healthy Maternal Aunt 4 Healthy Maternal Aunt 5 Healthy Maternal Aunt 6 Healthy Maternal Aunt 7 Heart Disease Maternal Grandfather Karen Diabetes Maternal Grandmother Cleo Healthy Maternal Uncle 1 Healthy Maternal Uncle 2 Healthy Maternal Uncle 3 Diabetes Mother Jayla Healthy Other Other Paternal Aunt Dementia Cancer Paternal Grandmother Peyton Cancer of unknown primary Healthy Paternal Uncle Other Sister Jody PMS 2+ p atient has Dewey syndrome Healthy Son Jaime Colon Cancer Neg Hx Gastric Cancer Neg Hx Lung Cancer Neg Hx Ovarian Cancer Neg Hx Pancreatic Cancer Neg Hx Prostate Cancer Neg Hx Skin Cancer Neg Hx Uterine Cancer Neg Hx Relation Name Status Comments Brother C.W. Alive Daughter Jojo Alive Father Casey Maternal Aunt 1 Maternal Aunt 2 Alive Maternal Aunt 3 Alive Maternal Aunt 4 Alive Maternal Aunt 5 Alive Maternal Aunt 6 Alive Maternal Aunt 7 Alive Maternal Grandfather Karen Maternal Grandmother Cleo Maternal Uncle 1 Alive Maternal Uncle 2 Alive Maternal Uncle 3 Alive Mother Jayla Alive Other Alive Paternal Aunt Paternal Grandfather Paternal Grandmother Peyton Paternal Uncle Alive Sister Jody Alive Son Jaime Alive Social History Tobacco Use Types Packs/Day Years Used Date Smoking Tobacco: Never Smokeless Tobacco: Never Tobacco Cessation:Counseling Given: Not Answered Alcohol Use Standard Drinks/Week Comments No 0 [...] week 08/16/2018 How often do you attend pentecostalism or yazdanism serv ices? Never 08/16/2018 Do you belong to any clubs o r organizations such as pentecostalism groups, unions, fraternal or athletic groups, or [...] file Not on file Not on file Last Filed Vital Signs Vital Sign Reading Time Taken Comments Blood Pressure 140/60 05/24/2024 8:16 AM CDT first bp 156 80 Pulse 72 05/24/2024 8:16 AM CDT Temperature 36.6 C (97.8 F) 05/24/2024 8:16 AM CDT Respiratory Rate 16 01/26/2024 9:17 AM MANAGER CHANGE Oxygen Saturation 99% 05/24/2024 8:1 6 AM CDT Inhaled Oxygen Concentration - - Weight 108 kg (238 lb) 05/24/2024 8:16 AM CDT Height 165.1 cm (5' 5 ) 05/24/2024 8:16 AM CDT Body Mass Index 39.61 05/24/2024 8:16 AM CDT Plan of Treatment Upcoming Encounters Date Type Department Care Team (Late st Contact Info) Description 07/19/2024 11:15 AM CDT Office Visit [facility] Oncology and Hematology - [address] [place] [phone] Ziyad Meade MD [address] [facility] [address] [place] [address] 11/19/2024 1:00 PM CDT Appointment [facility] [address]ine [address] [address] [place] [address] [place] [address] [facility] [address] [place] [address] 11/19/2024 2:00 PM CDT Office Visit [facility] Jeanine Walsh [address] [facility] [address] [place] [address] [place] [address] [phone] 11/22/2024 8:30 AM CDT Office Visit [facility] Internal Medicine [facility] [address] [facility] [address] [address] Beni Wen MD [address] [facility] [address] [place] [address] Health Maintenance Due Date Last Done Comments HEPATITIS B VACCINES (1 of 3 - 19+ 3-dose series) 05/07/1990 COVID-19 Vaccine (2023-2 5 season) 2023 09/03/2022, 04/10/2021, 05/09/2020 Preventative Visit- Commercial 03/06/2024 0 11/21/2023, 11/29/2022, 06/11/2021, Additional history exists BREAST CANCER SCREENING 11/09/2024 11/10/19 24, 11/04/2022, 10/01/2021, Additional history exists COLORECTAL SCREENING 11/19/2024 11/20/2023, 11/20/2023, 10/31/2022, Additional history exists Pre-Diabetes and Diabetes Screening 06/22/2027 06/21/2024, 11/23/2023, 12/02/2022, Additional history exists DTAP/TDAP/TD VACCINES (2 - T d or Tdap) 12/11/2030 12/11/2020 ZOSTER VACCINE Completed 11/29/2022, 09/03/2022 INFLUENZA VACCINE Completed 11/21/2023, , 11/05/2022, Additional history exists Medical Devices Implanted Type Area Flyer Maker Device Identifier Shelf Expiration Date Model / Serial / Lot Port Procedures Procedure Name Priority Date/Time Associated Diagnosis Comments CT ABDOMEN PELVIS W CONTRAST Routine 07/12/2024 2:01 PM CDT ECHOCARDIOGRAM W/ CONTRAST AGENT Routine 07/05/2024 11:48 AM CDT Family history of TN (myocardial infarction) HEMOGLOBIN A1C Routine 06/21/2024 1:02 PM CDT Prediabetes MRI BREAST SCREENING WWO CONTRAST BILATERAL Routine 05/10/2024 9:29 AM MANAGER CHANGE 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 History of colon cancer Obesity (BMI 35.0-39.9 without comorbidity) Sebaceous cyst of breast, left At high risk for breast cancer Heterogeneously dense tissue of both breasts on mammography COLONOSCOPY REPORT 11/20/2023 2: 47 PM CDT MAMMO 3D ROSS DIAGNOSTIC BILAT W OR WO CAD Routine 11/10/2023 7:23 AM CDT At high risk for breast cancer Dense breast tissue on mammogram 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 from Last 3 Months or Most Recently Relevant to Health Maintenance Results * CT ABDOMEN PELVIS W CONTRAST (07/12/2024 2:01 PM CDT) Anatomical Region Laterality Modality Abdomen Computed Tomogra phy Ziyad Meade MD CT ORDERABLES Final Result * ECHOCARDIOGRAM W/ CONTRAST AGENT (07/05/2024 11:48 AM CDT) EJECTION FRACTION 67 INTERFACE SYSTEM 07/05/2024 11:1 4 AM CDT Narrative INTERFACE SYSTEM - 07/07/2024 9:29 [place] [address] [email or web address] Transthoracic Echocardiogram Patient: Girish John Study ID: [id number] Gender: F : 1970 Age: 54 Race: [facility] Height 165.1cm Study Date: 07/05/2024 Weight: 108kg Access. #: [id number] BP: *Referring Physician:* Kasia Magallanes Megan *Ordering Physician:* Kasia Magallanes state's attorney: Nurse: Indications: Fam hx of TN. STUDY CONCLUSIONS: SUMMARY: - Procedure narrative: A transthoracic echocardiogram was performed. Image quality was fair. Scanning was performed from the parasternal, apical, and subcostal acoustic windows. Intravenous contrast (Definity) was administered to opacify the LV. - Left ventricle: The cavity size was normal. Wall thickness was normal. Global systolic function is normal. For Epic reporting: the left ventricular ejection fraction is 67% by biplane method of disks. Diastolic function assessment consistent with abnormal left ventricular relaxation (grade 1 diastolic dysfunction). - Mitral valve: Trivial regurgitation. - Left atrium: The atrium is normal in size. - Right ventricle: The cavity size is normal. Systolic function is normal. - Tricuspid valve: Mild regurgitation. - Pulmonary arteries: Systolic pressure was within the normal range. The peak systolic pressure is 18mm Hg. Cardiac Anatomy: LEFT VENTRICLE: The cavity size was normal. Wall thickness was normal. Global systolic function is normal. For Epic reporting: the left ventricular ejection fraction is 67% by biplane method of disks. Diastolic function assessment consistent with abnormal left ventricular relaxation (grade 1 diastolic dysfunction). AORTIC VALVE: Structurally normal valve. Trileaflet. No significant regurgitation. The mean systolic gradient is 10mm Hg. The peak systolic gradient is 17mm Hg. The LVOT to aortic valve VTI ratio is 0.88. The valve area is 2.8cm^2. The ratio of LVOT to aortic valve peak velocity is 0.89. AORTA: Aortic root: The root is normal-sized. MITRAL VALVE: Structurally normal valve. Trivial regurgitation. The mean diastolic gradient is 3mm Hg. The peak diastolic gradient is 7mm Hg. LEFT ATRIUM: The atrium is normal in size. RIGHT VENTRICLE: The cavity size is normal. Systolic function is normal. PULMONIC VALVE: Structurally normal valve. No significant regurgitation. TRICUSPID VALVE: Structurally normal valve. Mild regurgitation. PULMONARY ARTERY: Systolic pressure was within the normal range. RIGHT ATRIUM: The atrium was normal in size. SYSTEMIC VEINS: Inferior vena cava: The IVC is normal-sized. PERICARDIUM: There is no pericardial effusion. Measurements Left ventricle Value Ref IVS, ED, LAX (H) 1.0 cm 0.6 - 0.9 ELIZABETH, LAX (L) 3.1 cm 3.8 - 5.2 ELIZABETH/bsa, LAX (L) 1.4 cm/m^2 2.3 - 3.1 IVS, ED (H) 1.1 cm 0.6 - 0.9 PW, ED (H) 1.0 cm 0.6 - 0.9 EDV, 2-p (H) 126 ml 46 - 106 ESV, 2-p (N) 42 ml 14 - 42 EF, 2-p (N) 67 % 54 - 74 SV, 2-p 84 ml --------- SV/bsa, 2-p 39.6 ml/m^2 --------- E', lat julito, TDI (N) 12.3 cm/sec >=10.0 E/e', lat julito, TDI (N) 8 <=13 E', med julito, TDI (N) 10.1 cm/sec >=7.0 E/e', med julito, TDI 10 --------- E', avg, TDI 11.2 cm/sec --------- E/e', avg, TDI (N) 9 <=14 LVOT Value Ref Diam, S 2.0 cm --------- Area 3.1 cm^2 --------- Peak marija, S 1.86 m/sec --------- VTI, S 39.2 cm --------- Peak grad, S 14 mm Hg --------- Right ventricle Value Ref ELIZABETH minor ax, A4C base (N) 3.3 cm 2.5 - 4.1 ELIZABETH minor ax, A4C mid (L) 1.8 cm 1.9 - 3.5 TAPSE, MM (N) 2.5 cm >=1.7 Pressure, S 18 mm Hg --------- S' lateral (N) 15.3 cm/sec >=9.5 Left atrium Value Ref AP dim, ES (N) 3.6 cm 2.7 - 3.8 AP dim index, ES (N) 1.7 cm/m^2 1.5 - 2.3 SI dim, A4C 6.1 cm --------- Area ES, A4C (N) 17 cm^2 <=20 Area/bsa ES, A4C 8.03 cm^2/m^2 --------- SI dim, A2C 5.8 cm --------- SI dim, shorter 5.8 cm --------- Vol, ES, 1-p A2C (N) 42 ml 22 - 52 Vol/bsa, ES, 1-p A2C (N) 20 ml/m^2 13 - 40 Vol, ES, 2-p 41 ml --------- Vol/bsa, ES, 2-p (N) 19 ml/m^2 16 - 34 LA/Ao root ratio 1.38 --------- Right atrium Value Ref SI dim, ES, A4C (N) 4.4 cm 3.4 - 5.3 SI dim/bsa, ES, A4C (N) 2.1 cm/m^2 1.9 - 3.1 Area, ES, A4C (N) 13 cm^2 10 - 18 Vol, ES, 1-p A4C 31 ml --------- Vol/bsa, ES, 1-p A4C (N) 15 ml/m^2 9 - 33 Aortic valve Value Ref Peak v, S 2.1 m/sec --------- Mean v, S 1.44 m/sec --------- VTI, S 44.3 cm --------- Mean grad, S 10 mm Hg --------- Peak grad, S 17 mm Hg --------- LVOT/AV, VTI ratio 0.88 --------- EMILY, VTI 2.8 cm^2 --------- EMILY/bsa, VTI 1.31 cm^2/m^2 --------- LVOT/AV, Vpeak ratio 0.89 --------- EMILY, Vmax 2.8 cm^2 --------- EMILY/bsa, Vmax 1.32 cm^2/m^2 --------- Mitral valve Value Ref Mean v, D 0.86 m/sec --------- Peak E 1.04 m/sec --------- Peak A 1.09 m/sec --------- Decel time 172 ms --------- Mean grad, D 3 mm Hg --------- Peak grad, D 7 mm Hg --------- Peak E/A ratio 1 --------- A-VTI 33.2 cm --------- Pulmonic valve Value Ref Peak v, S 1.58 m/sec --------- Peak grad, S 10 mm Hg --------- Tricuspid valve Value Ref TR peak v (N) 1.8 m/sec <=2.8 Peak RV-RA grad, S 13 mm Hg --------- Aortic root Value Ref Root diam, 2.6 cm --------- Ascending aorta Value Ref AAo AP diam, S 3.0 cm --------- AAo AP diam/bsa, S 1.4 cm/m^2 --------- Pulmonary artery Value Ref Pressure, S 18 mm Hg --------- Systemic veins Value Ref Estimated RA pressure 5 mm Hg --------- Legend: (L) and (H) rosi values outside specified reference range. (N) adams values inside specified reference range. Procedure data: Procedure information: A transthoracic echocardiogram was performed. Image quality was fair. Scanning was performed from the parasternal, apical, and subcostal acoustic windows. Intravenous contrast (Definity) was administered to opacify the LV. Transthoracic echocardiogram. Complete 2D, complete spectral Doppler, and color Doppler. Birthdate: Patient birthdate: 1970. Age: Patient is 54year(s) old. Sex: gender: female. Height: 165.1cm. 65in. Weight: 108kg. 238lb. Body mass index: 39.6kg/m^2. Body surface area: 2.13m^2. Study date: Study date: 07/05/2024. Study time: 11:14 AM. Prepared and Electronically Authenticated Raymundo Gilbert [id number] Procedure Note Raymundo Gilbert MD - 07/07/2024 [place] [address] [email or web address] Transthoracic Echocardiogram Patient: Girish John Study ID: [id number] Gender: F : 1970 Age: 54 Race: CAU Height 165.1cm Study Date: 07/05/2024 Weight: 108kg Access. #: [id number] BP: *Referring Physician:* Kasia Magallanes Megan *Ordering Physician:* Kasia Magallanes state's attorney: Nurse: Indications: Fam hx of TN. STUDY CONCLUSIONS: SUMMARY: - Procedure narrative: A transthoracic echocardiogram was performed.Image quality was fair. Scanning was performed from the parasternal, apical,and subcostal acoustic windows. Intravenous contrast (Definity) wasadministered to opacify the LV. - Left ventricle: The cavity size was normal. Wall thickness was normal. Global systolic function is normal. For Epic reporting: the leftventricular ejection fraction is 67% by biplane method of disks. Diastolicfunction assessment consistent with abnormal left ventricular relaxation (grade1 diastolic dysfunction). - Mitral valve: Trivial regurgitation. - Left atrium: The atrium is normal in size. - Right ventricle: The cavity size is normal. Systolic function isnormal. - Tricuspid valve: Mild regurgitation. - Pulmonary arteries: Systolic pressure was within the normal range. Thepeak systolic pressure is 18mm Hg. Cardiac Anatomy: LEFT VENTRICLE: The cavity size was normal. Wall thickness was normal.Global systolic function is normal. For Epic reporting: the left ventricularejection fraction is 67% by biplane method of disks. Diastolic functionassessment consistent with abnormal left ventricular relaxation (grade 1 diastolic dysfunction). AORTIC VALVE: Structurally normal valve. Trileaflet. No significant regurgitation. The mean systolic gradient is 10mm Hg. The peak systolic gradient is 17mm Hg. The LVOT to aortic valve VTI ratio is 0.88. Thevalve area is 2.8cm^2. The ratio of LVOT to aortic valve peak velocity is0.89. AORTA: Aortic root: The root is normal-sized. MITRAL VALVE: Structurally normal valve. Trivial regurgitation. Themean diastolic gradient is 3mm Hg. The peak diastolic gradient is 7mm Hg. LEFT ATRIUM: The atrium is normal in size. RIGHT VENTRICLE: The cavity size is normal. Systolic function isnormal. PULMONIC VALVE: Structurally normal valve. No significantregurgitation. TRICUSPID VALVE: Structurally normal valve. Mild regurgitation. PULMONARY ARTERY: Systolic pressure was within the normal range. RIGHT ATRIUM: The atrium was normal in size. SYSTEMIC VEINS: Inferior vena cava: The IVC is normal-sized. PERICARDIUM: There is no pericardial effusion. Measurements Left ventricle Value Ref IVS, ED, LAX (H) 1.0 cm 0.6 - 0.9 ELIZABETH, LAX (L) 3.1 cm 3.8 - 5.2 ELIZABETH/bsa, LAX (L) 1.4 cm/m^2 2.3 - 3.1 IVS, ED (H) 1.1 cm 0.6 - 0.9 PW, ED (H) 1.0 cm 0.6 - 0.9 EDV, 2-p (H) 126 ml 46 - 106 ESV, 2-p (N) 42 ml 14 - 42 EF, 2-p (N) 67 % 54 - 74 SV, 2-p 84 ml --------- SV/bsa, 2-p 39.6 ml/m^2 --------- E', lat julito, TDI (N) 12.3 cm/sec >=10.0 E/e', lat julito, TDI (N) 8 <=13 E', med julito, TDI (N) 10.1 cm/sec >=7.0 E/e', med julito, TDI 10 --------- E', avg, TDI 11.2 cm/sec --------- E/e', avg, TDI (N) 9 <=14 LVOT Value Ref Diam, S 2.0 cm --------- Area 3.1 cm^2 --------- Peak marija, S 1.86 m/sec --------- VTI, S 39.2 cm --------- Peak grad, S 14 mm Hg --------- Right ventricle Value Ref ELIZABETH minor ax, A4C base (N) 3.3 cm 2.5 - 4.1 ELIZABETH minor ax, A4C mid (L) 1.8 cm 1.9 - 3.5 TAPSE, MM (N) 2.5 cm >=1.7 Pressure, S 18 mm Hg --------- S' lateral (N) 15.3 cm/sec >=9.5 Left atrium Value Ref AP dim, ES (N) 3.6 cm 2.7 - 3.8 AP dim index, ES (N) 1.7 cm/m^2 1.5 - 2.3 SI dim, A4C 6.1 cm --------- Area ES, A4C (N) 17 cm^2 <=20 Area/bsa ES, A4C 8.03 cm^2/m^2 --------- SI dim, A2C 5.8 cm --------- SI dim, shorter 5.8 cm --------- Vol, ES, 1-p A2C (N) 42 ml 22 - 52 Vol/bsa, ES, 1-p A2C (N) 20 ml/m^2 13 - 40 Vol, ES, 2-p 41 ml --------- Vol/bsa, ES, 2-p (N) 19 ml/m^2 16 - 34 LA/Ao root ratio 1.38 --------- Right atrium Value Ref SI dim, ES, A4C (N) 4.4 cm 3.4 - 5.3 SI dim/bsa, ES, A4C (N) 2.1 cm/m^2 1.9 - 3.1 Area, ES, A4C (N) 13 cm^2 10 - 18 Vol, ES, 1-p A4C 31 ml --------- Vol/bsa, ES, 1-p A4C (N) 15 ml/m^2 9 - 33 Aortic valve Value Ref Peak v, S 2.1 m/sec --------- Mean v, S 1.44 m/sec --------- VTI, S 44.3 cm --------- Mean grad, S 10 mm Hg --------- Peak grad, S 17 mm Hg --------- LVOT/AV, VTI ratio 0.88 --------- EMILY, VTI 2.8 cm^2 --------- EMILY/bsa, VTI 1.31 cm^2/m^2 --------- LVOT/AV, Vpeak ratio 0.89 --------- EMILY, Vmax 2.8 cm^2 --------- EMILY/bsa, Vmax 1.32 cm^2/m^2 --------- Mitral valve Value Ref Mean v, D 0.86 m/sec --------- Peak E 1.04 m/sec --------- Peak A 1.09 m/sec --------- Decel time 172 ms --------- Mean grad, D 3 mm Hg --------- Peak grad, D 7 mm Hg --------- Peak E/A ratio 1 --------- A-VTI 33.2 cm --------- Pulmonic valve Value Ref Peak v, S 1.58 m/sec --------- Peak grad, S 10 mm Hg --------- Tricuspid valve Value Ref TR peak v (N) 1.8 m/sec <=2.8 Peak RV-RA grad, S 13 mm Hg --------- Aortic root Value Ref Root diam, 2.6 cm --------- Ascending aorta Value Ref AAo AP diam, S 3.0 cm --------- AAo AP diam/bsa, S 1.4 cm/m^2 --------- Pulmonary artery Value Ref Pressure, S 18 mm Hg --------- Systemic veins Value Ref Estimated RA pressure 5 mm Hg --------- Legend: (L) and (H) rosi values outside specified reference range. (N) adams values inside specified reference range. Procedure data: Procedure information: A transthoracic echocardiogram was performed.Image quality was fair. Scanning was performed from the parasternal, apical,and subcostal acoustic windows. Intravenous contrast (Definity) wasadministered to opacify the LV. Transthoracic echocardiogram. Complete 2D, complete spectral Doppler, and color Doppler. Birthdate: Patientbirthdate: 1970. Age: Patient is 54year(s) old. Sex: gender:female. Height: 165.1cm. 65in. Weight: 108kg. 238lb. Body mass index:39.6kg/m^2. Body surface area: 2.13m^2. Study date: Study date: 07/05/2024.Study time: 11:14 AM. Prepared and Electronically Authenticated Raymundo Gilbert [id number] us Kasia FREED US ORDERABLES Final Resu lt INTERFACE SYSTEM Refer to clinic/hospital department * (ABNORMAL) HEMOGLOBIN A1C (06/21/2024 1:02 PM CDT) HEMOGLOBIN A1C 6.7(H) <5.7 % of total Hgb [facility] Comment: For someone without known diabetes, a hemoglobin A1c value of 6.5% or greater indicates that they may have diabetes and this should be confirmed with a follow-up test. For someone with known diabetes, a value <7% indicates that their diabetes is well controlled and a value greater than or equal to 7% indicates suboptimal control. A1c targets should be individualized based on duration of diabetes, age, comorbid conditions, and other considerations. Currently, no consensus exists regarding use of hemoglobin A1c for diagnosis of diabetes for children. ESTIMATED AVERAGE GLUCOSE (MG/DL) 146 mg/dL [facility] ESTIMATED AVERAGE GLUCOSE (MMOL/L) 8.1 mmol/L [facility] Comment: Test Performed at: [place] [address] [address] [address] Celestino Antunez Blood 06/21/2024 1:02 PM CDT 06/21/2024 1:02 PM CDT Kasia FREED CHEMISTRY ORDERABLES Final Result [facility] [phone] [facility] [place] [address] [address] [place] [address] * MRI BREAST SCREENING WWO CONTRAST BILATERAL (05/10/2024 9:29 AM MANAGER CHANGE) Anatomical Region Laterality Modality Breast Bilateral Magnetic Resonan ce 05/10/2024 9:31 AM MANAGER CHANGE Impressions 05/10/2024 10:00 AM MANAGER CHANGE IMPRESSION: No MRI evidence of malignancy is identified within either breast. Annual mammography recommended, due in November 2024. 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 Prior benign left breast core needle biopsy. COMPARISON: Breast MRI 04/14/2023 and older, mammograms 11/10/2023 and older. CONTRAST: GADOBENATE DIMEGLUMINE 529 MG/ML(0.1 MMOL/0.2 ML) INTRAVENOUS SOLUTION Given:20 mL TECHNIQUE: Bilateral multisequence dynamic breast MRI was performed before and after intravenous contrast administration. Images are acquired on dedicated [employer] breast coil system and image interpretation performed on [employer] CAD workstation. MultiHance was administered without immediate complication. FINDINGS: There is mild to moderate background enhancement. There is no abnormal enhancement to suggest malignancy in either breast. Within the upper central left breast redemonstrated is an oval mass, with benign persistent kinetics measuring 1.1 x 0.8 cm, stable dating back to 03/19/2021 (image 321 of the first postcontrast series). There is an adjacent biopsy clip. There is no concerning skin thickening. The nipple-areolar complexes are within normal limits. There are no morphologically abnormal lymph nodes. 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 Prior benign left breast core needle biopsy. COMPARISON: Breast MRI 04/14/2023 and older, mammograms 11/10/2023 and older. CONTRAST: GADOBENATE DIMEGLUMINE 529 MG/ML(0.1 MMOL/0.2 ML) INTRAVENOUS SOLUTION Given:20 mL TECHNIQUE: Bilateral multisequence dynamic breast MRI was performed before and after intravenous contrast administration. Images are acquired on dedicated [employer] breast coil system and image interpretation performed on [employer] CAD workstation. MultiHance was administered without immediate complication. FINDINGS: There is mild to moderate background enhancement. There is no abnormal enhancement to suggest malignancy in either breast. Within the upper central left breast redemonstrated is an oval mass, with benign persistent kinetics measuring 1.1 x 0.8 cm, stable dating back to 03/19/2021 (image 321 of the first postcontrast series). There is an adjacent biopsy clip. There is no concerning skin thickening. The nipple-areolar complexes are within normal limits. There are no morphologically abnormal lymph nodes. IMPRESSION: No MRI evidence of malignancy is identified within either breast. Annual mammography recommended, due in November 2024. OVERALL FINAL ASSESSMENT: BI-RADS CATEGORY 2: Benign findings DICTATION LOCATION: [facility] us Clotilde Quezada MD MR ORDERABLES Final Re sult * COLONOSCOPY REPORT (11/20/2023 2:47 PM CDT) Narrative Procedure Note May Perkins MD - 11/20/2023 2:47 PM CDT [facility] Endoscopy Patient Name: Girish John Procedure Date: 11/20/2023 Date of : 1970 Attending MD: May Perkins MD, Procedure: Colonoscopy Indications: High risk colon cancer surveillance: Personal history of colon cancer, Dewey Syndrome Providers: May Perkins MD Referring MD: Medicines: Monitored Anesthesia Care Complications: No immediate complications. Estimated blood loss: Minimal. Procedure: Informed consent was obtained for the procedure, including moderate sedation after risks were discussed. Based on the pre-procedure assessment, including review of the patient's medical history, medications, allergies, and review of systems, the patient was deemed to be an appropriate candidate for sedation. A timeout was performed. Continuous ECG monitoring, pulse oximetry, blood pressure monitoring, and direct observation were performed. The Colonoscope was introduced through the anus and advanced to the ileocolonic anastomosis. The colonoscopy was performed without difficulty. The patient tolerated the procedure well. The quality of the bowel preparation was excellent. The rectum and ileocolonic anastomosis were photographed. Estimated Blood Loss: Estimated blood loss was minimal. Findings: The perianal and digital rectal examinations were normal. There was evidence of a prior [id number] ileo-colonic anastomosis in the transverse colon. This was patent and was characterized by ulceration. The anastomosis was traversed. This was biopsied with a cold forceps for histology. A 7 mm polyp was found in the descending colon. The polyp was sessile. The polyp was removed with a cold snare. Resection and retrieval were complete. Two sessile polyps were found in the mid rectum. The polyps were 3 to 5 mm in size. These polyps were removed with a cold snare. Resection and retrieval were complete. The retroflexed view of the distal rectum and anal verge was normal and showed no anal or rectal abnormalities. Impression: - Patent [id number] ileo-colonic anastomosis, characterized by ulceration. Biopsied. - One 7 mm polyp in the descending colon, removed with a cold snare. Resected and retrieved. - Two 3 to 5 mm polyps in the mid rectum, removed with a cold snare. Resected and retrieved. - The distal rectum and anal verge are normal on retroflexion view. Recommendation: - Discharge patient to home (ambulatory). - Resume previous diet. - No aspirin, ibuprofen, naproxen, or other non-steroidal anti-inflammatory drugs. - Await pathology results. - Repeat colonoscopy in 1 year for surveillance. - Return to my office PRN. May Perkins MD 11/20/2023 2:47:34 PM Number of Addenda: [address]; [place] [address] May Perkins MD GI PROCEDURE ORDERA BLES Final Result * MAMMO DIAG BILAT 3D ROSS W OR WO CAD (11/10/2023 7:23 AM CDT) Anatomical Region Laterality Modality Breast Bilateral Mammography 11/10/2023 7:23 AM CDT Impressions 11/10/2023 7:43 AM CDT IMPRESSION: No mammographic evidence of malignancy. RECOMMENDATIONS: Routine mammogram in one year. [facility] 11/10/2023 7:43 AM CDT EXAM: BILATERAL DIAGNOSTIC FULL-FIELD DIGITAL MAMMOGRAPHY WITH CAD WITH 3D TOMOSYNTHESIS DATE: 11/10/2023 7:23 AM HISTORY: Personal history of Dewey syndrome. 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 TECHNIQUE: Mediolateral oblique, mediolateral and craniocaudal views of both breasts were performed using full field digital mammography. Low-dose full-field digital breast tomosynthesis examination was performed with 2D and 3D acquisitions. Examination is read in conjunction with computer aided detection. COMPARISON: 2022, 2021, 2020. BREAST COMPOSITION: The breasts are heterogeneously dense, which may obscure small masses. FINDINGS: Scattered microcalcifications are seen throughout both breasts. Site markers again seen on the left. No new suspicious mass, architectural distortion or grouped microcalcifications. OVERALL FINAL ASSESSMENT: BI-RADS CATEGORY 2: Benign findings. Procedure Note Gato Mei MD - 11/10/2023 EXAM: BILATERAL DIAGNOSTIC FULL-FIELD DIGITAL MAMMOGRAPHY WITH CAD WITH 3D TOMOSYNTHESIS DATE: 11/10/2023 7:23 AM HISTORY: Personal history of Dewey syndrome. 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 TECHNIQUE: Mediolateral oblique, mediolateral and craniocaudal views of both breasts were performed using full field digital mammography. Low-dose full-field digital breast tomosynthesis examination was performed with 2D and 3D acquisitions. Examination is read in conjunction with computer aided detection. COMPARISON: 2022, 2021, 2020. BREAST COMPOSITION: The breasts are heterogeneously dense, which may obscure small masses. FINDINGS: Scattered microcalcifications are seen throughout both breasts. Site markers again seen on the left. No new suspicious mass, architectural distortion or grouped microcalcifications. OVERALL FINAL ASSESSMENT: BI-RADS CATEGORY 2: Benign findings. IMPRESSION: No mammographic evidence of malignancy. RECOMMENDATIONS: Routine mammogram in one year. DICTATION LOCATION: [facility] Clotilde Quezada MD MAMMO ORDERABLES Final R esult from Last 3 Months or Most Recently Relevant to Health Maintenance Insurance [employer] [id number] Advance Directives For more information, please contact: [phone] * Full Code (Latest Code Status on File) Date Activated Date Inactivated Comments 11/20/2023 1:22 PM 11/20/2023 5:41 PM * Full Code Date Activated Date Inactivated Comments 10/31/2022 1:55 PM 10/31/2022 5:47 PM * Full Code Date Activated Date Inactivated Comments 10/02/2020 8:13 AM 10/02/2020 12:42 PM * Full Code Date Activated Date Inactivated Comments 09/27/2019 12:02 PM 09/27/2019 3:41 PM * Full Code Date Activated Date Inactivated Comments 10/22/2018 8:29 AM 10/22/2018 4:20 PM Care Teams Reservations Sales Agent Relationship Specialty Start Date End Date Beni Wen MD [address] [place] [address] PCP - General Internal Medicine 09/18/20
--- OUTSIDE RECORDS SUMMARY | 2024-07-15 15:51 | XMS_ITS | Encounter Summary ---
Author Organization [facility] Address [address] [place] [address] Care Team Providers Care Art Objects Supervisor Name Role Phone Beni Wen MD Primary Care Provider Encounter Details Date Type Department Care Team (Late st Contact Info) Description 07/12/2024 Orders Only [facility] Oncology and Hematology - Roberto [address] [facility] [address] [place] [address] Ziyad Meade MD [address] [facility] [address] [place] [address] Social History Tobacco Use Types Packs/Day Years [...] week 08/16/2018 How often do you attend yarsani or adventism serv ices? Never 08/16/2018 Do you belong to any clubs o r organizations such as yarsani groups, unions, fraternal or athletic groups, or [...] on file documented as of this encounter Plan of Treatment Upcoming Encounters Date Type Department Care Team (Late st Contact Info) Description 07/19/2024 11:15 AM CDT Office Visit [facility] Oncology and Hematology - Roberto [address] [facility] [address] [place] [address] Ziyad Meade MD [address] [facility] [address] [place] [address] 11/19/2024 1:00 PM CDT Appointment [facility] [place] [address] [place] [address] [place] [address] [address] [place] [phone] 11/19/2024 2:00 PM CDT Office Visit [facility] Breast Surgery Med [place] [address] [facility] [address] [place] [phone] [place] [address] [facility] [address] [place] [address] 11/22/2024 8:30 AM CDT Office Visit [facility] Internal Medicine [place] [address] [address] [facility] [address] [place] [address] Beni Wen MD [address] [address] documented as of this encounter Procedures Procedure Name Priority Date/Time Associated Diagnosis Comments CT ABDOMEN PELVIS W CONTRAST Routine 07/12/2024 2:01 PM CDT documented in this encounter Results * CT ABDOMEN PELVIS W CONTRAST (07/12/2024 2:01 PM CDT) Anatomical Region Laterality Modality Abdomen Computed Tomogra phy Ziyad Meade MD CT ORDERABLES Final Result documented in this encounter Visit Diagnoses Not on filedocumented in this encounter Care Teams Art Objects Supervisor Relationship Specialty Start Date End Date Beni Wen MD [address] [facility] [address] [place] [address] PCP - General Internal Medicine 09/18/20 documented as of this encounter
[2024-07-15 15:58] LABS: Basophils Absolute Auto 0.1 K/mm3 (0.0-0.1); Basophils Percent Auto 0.8 % (0.2-1.2); Eosinophils Absolute Auto 0.3 K/mm3 (0-0.3); Hemoglobin 13.2 g/dL (12.0-15.0); Immature Granulocyte Absolute 0.02 K/mm3 (0.00-0.031); Immature Granulocyte Percent A 0.3 % (0-0.5); Lymphocytes Absolute Auto 1.94 K/mm3 (0.9-3.2); Lymphocytes Percent Auto 25.1 % (18.3-44.2); Mean Corpuscular HGB Conc 32.2 g/dl (32-36); Mean Corpuscular Hemoglobin 28.6 pg (26-34); Mean Corpuscular Volume 88.9 fl (80-100); Mean Platelet Volume 9.9 fl (7.4-10.4); Monocytes Absolute Auto 0.7 K/mm3 (0.1-0.6); Monocytes Percent Auto 8.7 % (2.6-8.5); Neutrophils Absolute Auto 4.7 K/mm3 (1.3-6.7); Neutrophils Percent Auto 61.1 % (45.5-73.1); Platelet Count Result 240 k/mm3 (150-375); Red Blood Count 4.61 M/mm3 (4.2-5.4); Red Cell Distribution Width 12.9 % (11.5-14.5); White Blood Count 7.7 K/mm3 (4.5-10.0)
[2024-07-15 20:00] LABS: Alanine Aminotransferase 33 U/L (6-35); Albumin Level 4.7 g/dL (3.5-5.1); Alkaline Phosphatase 80 U/L (38-126); Anion Gap 8 mmol/L (4-12); Aspartate Amino Transferase 61 U/L (14-36); Bilirubin,Total 0.5 mg/dL (0.2-1.3); Blood Urea Nitrogen 20 mg/dL (7-17); Calcium 9.5 mg/dL (8.4-10.2); Carbon Dioxide 30 mmol/L (22-30); Chloride 102 mmol/L (98-107); Estimated Glomerular Filt Rate > 60; Glucose 136 mg/dL (65-110); Potassium 4.3 mmol/L (3.4-5.0); Sodium 140 mmol/L (137-145)
== END 2024-07-15 15:49 | disposition home or self-care (01) ==
PROVIDERS: Visit Provider Internal Medicine Hematology & Oncology
DX: C18.2 Malignant neoplasm of ascending colon (principal)
CPT/HCPCS: 36415; 80053; 82378; 85025

== ENCOUNTER 2025-01-22 15:45 | Outpatient (CLI) | payer OTHER, SELFPAY ==
[2025-01-22 15:56] LABS: Hematocrit 41.7 % (37.0-47.0); Hemoglobin 13.6 g/dL (12.0-15.0); Immature Granulocyte Percent A 0.4 % (0-0.5); Lymphocytes Absolute Auto 2.15 K/mm3 (0.9-3.2); Mean Corpuscular HGB Conc 32.6 g/dl (32-36); Mean Corpuscular Hemoglobin 29.1 pg (26-34); Mean Corpuscular Volume 89.3 fl (80-100); Nucleated Red Blood Cells Absolute Auto 0.000 K/mm3 (0.0-0.012); Nucleated Red Blood Cells Perc 0.0 % (0.0-0.2); Platelet Count Result 258 k/mm3 (150-375); Red Blood Count 4.67 M/mm3 (4.2-5.4); White Blood Count 8.3 K/mm3 (4.5-10.0)
[2025-01-22 17:32] LABS: Alanine Aminotransferase 25 U/L (6-35); Albumin Level 4.8 g/dL (3.5-5.1); Alkaline Phosphatase 81 U/L (38-126); Anion Gap 8 mmol/L (4-12); Aspartate Amino Transferase 34 U/L (14-36); Bilirubin,Total 0.7 mg/dL (0.2-1.3); Blood Urea Nitrogen 21 mg/dL (7-17); Calcium 9.6 mg/dL (8.4-10.2); Carbon Dioxide 30 mmol/L (22-30); Chloride 100 mmol/L (98-107); Estimated Glomerular Filt Rate > 60; Glucose 95 mg/dL (65-110); Potassium 4.2 mmol/L (3.4-5.0); Sodium 138 mmol/L (137-145); Total Protein 8.7 g/dL (6.3-8.2)
[2025-01-22 18:09] LABS: Carcinoembryonic Antigen 2.8 ng/mL (0.0-3.0)
--- OUTSIDE RECORDS SUMMARY | 2025-01-23 00:02 | XMS_ITS | Encounter Summary ---
Author Organization [facility] Address [address] [place] [address] Care Team Providers Care Trailers [employer] Salesperson Name Role Phone Beni Wen MD Primary Care Provider Encounter Details Date Type Department Care Team (Late st Contact Info) Description 01/01/2025 Results Follow-Up [facility] GASTROENTEROLOGY - [address] [facility] [address] [address] [facility] [address] [place] [address] [place] [address] [facility] [address] [place] [address] PATHOLOGY Social History Tobacco Use Types Packs/Day Years [...] week 08/16/2018 How often do you attend catholic or yarsani serv ices? Never 08/16/2018 Do you belong to any clubs o r organizations such as catholic groups, unions, fraternal or athletic groups, or [...] who hurts you emotionally and/or physically? 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 All biopsies taken are negative, benign and not worrisome. I discussed with Dr Hager. We will plan on repeat EGD in 2 years. Thx documented in this encounter Plan of Treatment Upcoming Encounters Date Type Department Care Team (Late st Contact Info) Description 01/24/2025 10:30 AM MARKET SPECIALIST Office Visit [facility] Oncology and Hematology - Roberto [address] [place] [phone] Ziyad Meade MD [address] [facility] [address] [place] [address] 04/04/2025 8:30 AM MARKET SPECIALIST Office Visit [facility] Internal Medicine [facility] [address] [facility] [address] [facility] [place] [address] Beni Wen MD [address] [facility] [address] [place] [address] 05/23/2025 10:30 AM CDT Appointment [facility] [address]ine [address] [address] [place] [phone] Chitra Armstrong, EVENTS ASSISTANT [address] [facility] [address] [place] [address] 12/01/2025 8:15 AM CDT Appointment [facility] [place] [address] [place] [address] Chitra Armstrong, EVENTS ASSISTANT [address] [address] 12/01/2025 9:00 AM CDT Office Visit [facility] Breast Surgery [place] [address] [facility] [address], [place] [address] Chitra Armstrong, EVENTS ASSISTANT [address] [facility] [address] [place] [address] 12/01/2025 11:00 AM CDT Office Visit [facility] Internal Medicine [facility] A [place] [address] [facility] [address] [facility] [place] [address] Beni Wen MD [address] [address] documented as of this encounter Visit Diagnoses Not on filedocumented in this encounter Care Teams [employer] Salesperson Relationship Specialty Start Date End Date Beni Wen MD [address] [address] PCP - General Internal Medicine 09/18/20 documented as of this encounter
--- OUTSIDE RECORDS SUMMARY | 2025-01-23 00:02 | XMS_ITS | Clinical Summary ---
Author Organization [facility] Address [address], [address] [address] Phone Care Team Providers Care Multiplex Operator Name Role Phone Unavailable Primary Care Provider [...] Virus (HCV) Screening 1970 TdaP Immunization 1970 Varicella Immunization (1 of 2 - 13+ 2-dose series) 05/07/1984 Hepatitis B Immunization (1 of 3 - 19+ 3-dose series) 05/07/1990 Pap Smear 05/07/1992 Cervical Cancer Screening (CCS) 05/07/2001 HPV/Cotest 05/07/2001 Cologuard 05/07/2016 Colonoscopy 05/07/2016 Colorectal Cancer Screening 05/07/2016 Immunochemical Fecal Occult Blood 05/07/2016 Pneumococcal Immunization (5 0+ years) (1 of 1 - PCV) 05/07/2021 Zoster Immunization (1 of 2) 05/07/2021 Influenza Immunization (#1) 2024 SARS-COV-2 Immunization ( - 2024- season) 2024 Respiratory Syncytial Virus (RSV) Immunization (Adult) (1 - 1-dose 75+ series) 05/07/2046 Human Papillomavirus (HPV) Immunization Aged Out No longer eligible b ased on patient's age to complete this topic Meningococcal Immunization (ACWY) Aged Out No longer eligible based on patient's age to complete this topic Rotavirus Immunization Aged Out No lo nger eligible based on patient's age to complete this topic
--- OUTSIDE RECORDS SUMMARY | 2025-01-23 00:02 | XMS_ITS | Clinical Summary ---
Author Organization [facility] Address [address] [place] [address] Care Team Providers Care Green House Manager Name Role Phone Beni Wen MD Primary Care Provider [phone] Allergies Active Allergy Reactions Criticality Noted Date Comments Iodine Rash Low 10/23/2017 Sulfa (Sulfonamide Antibiotics) Swelling Low 10/05 Medications multivitamin (DAILY-ASHIA) tablet Take 1 Tablet by mouth every other day. Active calcium citrate-vitami n D3 (CITRACAL WITH VIT D) 200 mg-6.25 mcg (250 unit) Tablet Take by mouth. Activ e VIT B COMP NO.3-FOLIC-C-B IOTIN ORAL Take by mouth. Hair, Skin, Nails Active triamcinolone acetonide (KENALOG) 0.1 % Cream Apply to affected area 2 times daily as needed (Eczema). 1 Gram 12/12/19 21 Active omeprazole (PriLOSEC) 40 mg Capsule, Delayed Release(E.C.)I ndications:His tory of gastric ulcer Take 1 Capsule (40 mg) by mouth daily. 90 Capsule 3 03/29/19 25 Active metFORMIN (GLUCOPHAGE) 500 mg tabletIndicati ons:Prediabete s Take 1 Tablet (500 mg) by mouth daily with breakfast. 90 Tablet 3 03/29/19 25 Active sodium sulfate-potass ium CHLORIDE-magne sium SULFATE (Sutab) 1.479-0.188- 0.225 gram Tablet Follow instructions on the prep sheet given to you by the office Co-pay card attached 24 Tablet 09/03/19 25 Active losartan (COZAAR) 100 mg tablet Take 1 Tablet (100 mg) by mouth daily. 100 Tablet 3 09/14/19 25 Active atorvastatin (LIPITOR) 10 mg tabletIndicati ons:Type 2 diabetes mellitus without complication, without long-term current use of insulin (CMS/HCC) Take 1 Tablet (10 mg) by mouth daily. 100 Tablet 3 12/12/19 25 Active tirzepatide (Mounjaro) 5 mg/0.5 mL Pen Injector Inject 0.5 mL (5 mg) by subcutaneous injection every 7 days. 2 mL 01/11/20 25 Active tirzepatide (Mounjaro) 2.5 mg/0.5 mL Pen InjectorIndica tions:Type 2 diabetes mellitus without complication, without long-term current use of insulin (CMS/HCC) Inject 0.5 mL (2.5 mg) by subcutaneous injection every 7 days. 2 mL 12/12/19 25 025 Discontinued Active Problems Patient Care Coordination No te Formatting of this note migh t be different from the original. Patient Care Team: Beni Wen MD as PCP - General (Internal Medicine) Jaspreet Longoria, BOX SEALING MACHINE OPERATOR (Nurse Practitioner Adult Health) Jeanine Donis CNM (Illuminating Engineer) Clotilde Quezada MD (Surgery) Problem Noted Date Diagnosed Date Essential hypertension 11/22/2024 Severe obesity (BMI 35.0-39.9) with comorbidity 11/22/2024 Sebaceous cyst of breast, left 12/27/2022 History of gastric ulcer 06/10/2021 Eczema 12/11/2020 Overview (06/12/2021): Obesity (BMI 35.0-39.9 without comorbidity) 10/2020 Type 2 diabetes mellitus wit hout complication, without long-term current use of insulin 06/19/2020 Overview (12/11/2020): Started on Metformin in November 2019 At high risk for breast cancer 05/10/2020 Dense breast tissue on mammogram 10/29/2019 Status post hysterectomy with oophorectomy 11/06 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 07/18/2018 12/11/2020 Genetic susceptibility to cancer 07/18/2018 12/11/2020 Family history of cancer 06/15/201810/2020 Genetic testing 06/15/2018 12/11/2020 Encounters Date Type Department Care Team Description 01/21/2025 External Device Data STL ABSTRACTION Provider, Abstract 01/10/2025 Orders Only [facility] Internal Medicine Medical [place] [address] [facility] [address] [address] Beni Wen MD 01/01/2025 Results Follow-Up [facility] GASTROENTEROLOGY - [address] [facility] [address] [address] [facility] [address] [place] [id number] Elvin Schulz MD PATHOLOGY 12/31/2024 External Device Data STL ABSTRACTION Provider, Abstract 12/27/2024 1:40 PM CDT Anesthesia Event [facility] Endoscopy Services [address] [place] [address] Fior Watters MD Ott, Deborah A, MD 12/27/2024 1:20 PM CDT - 12/27/2024 2:20 PM CDT Surgery [facility] Endoscopy Services [address] [place] [address] May Benz MD COLONOSCOPY 12/27/2024 11:53 AM CDT - 12/27/2024 2:42 PM CDT Hospital Encounter [facility] Endoscopy Services [address] [place] [phone] May Benz MD Malignant neoplasm of right colon (CMS/HCC) Discharge Disposition: Home or Self Care 12/25/2024 External Device Data STL ABSTRACTION Provider, Abstract 12/19/2024 Telephone [facility] Colon and Rectal Surgery [address] [facility] [address] [facility] [address] [place] [address] May Benz MD Colonoscopy confirmation 12/11/2024 Orders Only [facility] Internal Medicine Medical [place] [address] [facility] [address] [address] Beni Wen MD Type 2 diabetes mellitus without complication, without long-term current use of insulin (CMS/HCC) (Primary Dx) 11/28/2024 8:45 AM CDT Office Visit [facility] Breast Surgery Med [place] [address] [facility] [address] [place] [address] Clotilde Quezada MD McCarthy, Lindsey M, ICER HAND Breast cancer screening, high risk patient (Primary Dx); History of colon cancer; 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; Status post hysterectomy with oophorectomy; Heterogeneously dense tissue of both breasts on mammography; PMS2 gene mutation positive 11/28/2024 7:40 AM CDT - 11/28/2024 11:59 PM CDT Hospital Encounter [facility] [address] [place] [address] Clotilde Quezada MD Discharge Disposition: Home or Self Care 11/28/2024 Telephone [facility] Internal Medicine [place] [address] [address] [facility] [address] [place] [phone] Beni Wen MD Follow Up 11/26/2024 External Device Data STL ABSTRACTION Provider, Abstract 11/26/2024 External Device Data STL ABSTRACTION Provider, Abstract 11/26/2024 External Device Data STL ABSTRACTION Provider, Abstract 11/22/2024 8:30 AM CDT Office Visit [facility] Internal Medicine [facility] [address] [facility] [address] [place] [phone] Beni Wen MD Type 2 diabetes mellitus without complication, without long-term current use of insulin (CMS/HCC) (Primary Dx); History of colon cancer; Essential hypertension; Severe obesity (BMI 35.0-39.9) with comorbidity (CMS/HCC); Normal routine physical examination 11/19/2024 External Device Data STL ABSTRACTION Provider, Abstract 11/13/2024 Telephone [facility] Colon and Rectal Surgery [address] [facility] [address] [place] [address] May Benz MD Reschedule colonoscopy/EGD from Last 3 Months Immunizations Immunization Administration [...] MCG/0.5 ML IM SUSP 04/10/2021 INFLUENZA VACCINE HIGH DOSE TRIVALENT SPLIT VIRUS, (65 YR UP), 0.5ML (PF), IM 11/22/2024 INFLUENZA VACCINE QUADRIVALE NT 6 MOS UP PF IM 11/15/2019,12/07/2018,11/11/2017 INFLUENZA VACCINE RECOMBINAN T TRIVALENT, (9 YR UP), 0.5ML (PF), IM 11/21/2023 Influenza [...] week 08/16/2018 How often do you attend yarsanism or anglican serv ices? Never 08/16/2018 Do you belong to any clubs o r organizations such as yarsanism groups, unions, fraternal or athletic groups, or [...] Sign Reading Time Taken Comments Blood Pressure 143/83 12/27/2024 2:30 PM CDT Pulse 72 12/27/2024 2:25 PM CDT Temperature 36 C (96.8 F) 12/27/2024 2:13 PM CDT Respiratory Rate 17 12/27/2024 2:30 PM CDT Oxygen Saturation 100% 12/27/2024 2:25 PM CDT Inhaled Oxygen Concentration - - Weight 107.5 kg (237 lb) 12/27/2024 12:24 PM CDT Height 165.1 cm (5' 5) 12/27/2024 12:24 PM CDT Body Mass Index 39.44 12/27/2024 12:24 PM CDT Plan of Treatment Upcoming Encounters Date Type Department Care Team (Late st Contact Info) Description 01/24/2025 10:30 AM WIRE TWISTING MACHINE OPERATOR Office Visit [facility] Oncology and Hematology - [address] [facility] [address] [place] [address] Ziyad Meade MD [address] [facility] [address] [place] [address] 04/04/2025 8:30 AM WIRE TWISTING MACHINE OPERATOR Office Visit [facility] Internal Medicine Medical [facility] [address] [facility] [address] [facility] [place] [address] Beni Wen MD [address] [facility] [address] [place] [phone] 05/23/2025 10:30 AM CDT Appointment [facility] [address] [place] [address] Chitra Armstrong, ICER HAND [address] [facility] [address] [place] [phone] 12/01/2025 8:15 AM CDT Appointment [facility] [address] [place] [address] [place] [address] Chitra Armstrong, ICER HAND [address] [phone] 12/01/2025 9:00 AM CDT Office Visit [facility] Breast Surgery [place] [address] [place] [address] Chitra Armstrong, ICER HAND [address] [place] [address] 12/01/2025 11:00 AM CDT Office Visit [facility] Internal Medicine Medical [place] [address] [facility] [address] [address] Beni Wen MD [address] [facility] [address] [place] [address] Health Maintenance Due Date Last Done Comments HEPATITIS B VACCINES (1 of 3 - 19+ 3-dose series) 05/07/1990 COVID-19 Vaccine ( - 2024-2 6 season) 2024 09/03/2022, 04/10/2021, 05/09/2020 DIABETES ANNUAL RETINAL EXAM 01/11/2025 01/12/2024 DIABETES HBA1C Q 6 MONTHS 05/27/20252024, 06/21/2024, 11/23/2023, Additional history exists DIABETES ANNUAL FOOT EXAM 11/22/2025 11/22/2024 DIABETES MICROALBUMIN ANNUAL SCREEN 11/27/2025 11/27/2024 DIABETES: A1C (Auto Order) 11/27/202511/27, 06/21/2024, 11/23/2023, Additional history exists LDL CHOLESTEROL ANNUAL 11/27/2025 , 11/23/2023, 12/02/2022, Additional history exists BREAST CANCER SCREENING 11/28/2025 11/29/19 25, 11/10/2023, 11/04/2022, Additional history exists COLORECTAL SCREENING 12/27/2025 12/27/2024, 12/27/2024, 12/27/2024, Additional history exists UPPER GI ENDOSCOPY 12/27/2026 12/27/2024, 1 , 10/31/2022, Additional history exists DTAP/TDAP/TD VACCINES (2 - T d or Tdap) 12/11/2030 12/11/2020 ZOSTER VACCINE Completed 11/29/2022, 09/03/2022 INFLUENZA VACCINE Completed 11/22/2024, , 11/05/2022, Additional history exists Preventative Visit- Commercial Completed 0 11/22/2024, 11/21/2023, 11/29/2022, Additional history exists Medical Devices Implanted Type Area Seam Sewer Device Identifier Shelf Expiration Date Model / Serial / Lot Port Procedures Procedure Name Priority Date/Time Associated Diagnosis Comments COLONOSCOPY REPORT 12/27/2024 2:16 PM CDT UPPER ENDOSCOPY REPORT 1:54 PM CDT PATHOLOGY Pathology 12/27/2024 1:46 PM CDT Malignant neoplasm of right colon (CMS/HCC) History of colon polyps WY ESOPHAGOGASTRODUODENOSCOP Y SUBMUCOSAL INJECTION 12/27/2024 1:20 PM CDT Malignant neoplasm of right colon (CMS/HCC) History of colon polyps WY ESOPHAGOGASTRODUODENOSCOP Y TRANSORAL DIAGNOSTIC 12/27/2024 1:20 PM CDT Malignant neoplasm of right colon (CMS/HCC) History of colon polyps WY COLONOSCOPY W/BIOPSY SINGLE/MULTIPLE 12/27/2024 1:20 PM CDT Malignant neoplasm of right colon (CMS/HCC) History of colon polyps WY COLONOSCOPY FLX DX W/MIRIAM J SPEC WHEN PFRMD 12/27/2024 1:20 PM CDT Malignant neoplasm of right colon (CMS/HCC) History of colon polyps MAMMO 3D ROSS DIAGNOSTIC DWAYNE AT W OR WO CAD Routine 11/28/2024 8:01 AM CDT 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 History of colon cancer Obesity (BMI 35.0-39.9 without comorbidity) Sebaceous cyst of breast, left At high risk for breast cancer Heterogeneously dense tissue of both breasts on mammography MICROALBUMIN/CREATININE RATI O, RANDOM UR Routine 11/27/2024 6:52 AM CDT HEMOGLOBIN A1C Routine 11/27/2024 6:52 AM CDT Type 2 diabetes mellitus without complication, without long-term current use of insulin (CMS/HCC) LIPID PANEL Routine 11/27/2024 6:52 AM CDT Type 2 diabetes mellitus without complication, without long-term current use of insulin (CMS/HCC) COMPREHENSIVE METABOLIC PANEL Routine 6:52 AM CDT Type 2 diabetes mellitus without complication, without long-term current use of insulin (CMS/HCC) CBC WITH DIFFERENTIAL Routine 11/27/2024 6:52 AM CDT Type 2 diabetes mellitus without complication, without long-term current use of insulin (CMS/HCC) HM DIABETES EYE EXAM Routine 01/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 from Last 3 Months or Most Recently Relevant to Health Maintenance Results * COLONOSCOPY REPORT (12/27/2024 2:16 PM CDT) Narrative Procedure Note May Perkins MD - 12/27/2024 2:16 PM CDT [facility] Endoscopy Patient Name: Girish John Procedure Date: 12/27/2024 Date of : 1970 Attending MD: May Perkins MD, Procedure: Colonoscopy Indications: High risk colon cancer surveillance: Personal history of hereditary nonpolyposis colorectal cancer (Dewey Syndrome) and colon cancer s/p right colectomy in 2018 Providers: May Perkins MD Referring MD: Beni Wen MD Medicines: Monitored Anesthesia Care Complications: No immediate complications. Procedure: Informed consent was obtained for the procedure, including moderate sedation after risks were discussed. Based on the pre-procedure assessment, including review of the patient's medical history, medications, allergies, and review of systems, the patient was deemed to be an appropriate candidate for sedation. A timeout was performed. Continuous ECG monitoring, pulse oximetry, blood pressure monitoring, and direct observation were performed. The was introduced through the anus and advanced to the ileocolonic anastomosis. The colonoscopy was performed without difficulty. The patient tolerated the procedure well. The quality of the bowel preparation was excellent. The ileocolonic anastomosis and the rectum were photographed. Findings: The perianal and digital rectal examinations were normal. There was evidence of a prior ileo-colonic anastomosis in the transverse colon. This was patent and was characterized by healthy appearing mucosa. The anastomosis was not traversed. The exam was otherwise without abnormality on direct and retroflexion views. Impression: - Patent ileo-colonic anastomosis, characterized by healthy appearing mucosa. - The examination was otherwise normal on direct and retroflexion views. - No specimens collected. Recommendation: - Discharge patient to home (ambulatory). - Resume previous diet. - Continue present medications. - Repeat colonoscopy in 2 years for surveillance. - Return to primary care physician PRN. Procedure Code(s): --- Professional --- G0105, Colorectal cancer screening; colonoscopy on individual at high risk CPT copyright 2020 [employer]. All rights reserved. The codes documented in this report are preliminary and upon accounting manager controller review may be revised to meet current compliance requirements. 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 Procedure: Informed consent was obtained for the procedure, including moderate sedation after risks were discussed. Based on the pre-procedure assessment, including review of the patient's medical history, medications, allergies, and review of systems, the patient was deemed to be an appropriate candidate for sedation. A timeout was performed. Continuous ECG monitoring, pulse oximetry, blood pressure monitoring, and direct observation were performed. The Endoscope was introduced through the mouth, and advanced to the third part of duodenum. The upper GI endoscopy was accomplished without difficulty. The patient tolerated the procedure well. Findings: The Z-line was irregular. Biopsies were taken with a cold forceps for histology. The entire examined stomach was normal. Biopsies were taken with a cold forceps for histology. A single 6 mm sessile polyp was found in the duodenal bulb. The polyp was removed with a cold snare. Resection and retrieval were complete. Estimated blood loss was minimal. Impression: - Z-line irregular. Biopsied. - Normal stomach. Biopsied. - A single duodenal polyp. Resected and retrieved. Recommendation: - Patient has a contact number available for emergencies. The signs and symptoms of potential delayed complications were discussed with the patient. Return to normal activities tomorrow. Written discharge instructions were provided to the patient. - Resume previous diet. - Continue present medications. - Await pathology results. - Repeat upper endoscopy in 2 years for surveillance. Procedure Code(s): --- Professional --- 21545, Esophagogastroduodenoscopy, flexible, transoral; with removal of tumor(s), polyp(s), or other lesion(s) by snare technique [id number], 59,51, Esophagogastroduodenoscopy, flexible, transoral; with biopsy, single or multiple CPT copyright 2020 [employer]. All rights reserved. The codes documented in this report are preliminary and upon accounting manager controller review may be revised to meet current compliance requirements. Elvin Schulz, 12/27/2024 1:54:48 PM This report has been signed electronically. Number of Addenda: [phone] [id number] [place] [address] Elvin Schulz MD GI PROCEDURE ORDERABLES Final Result * PATHOLOGY (12/27/2024 1:46 PM CDT) CASE REPORT Surgical Pathology R eport Case: [id number] Authorizing Provider: Maddie Collected: 12/27/2024 01:46 PM MD May Ordering Location: [facility] Received: 12/28/2024 06:09 AM Endoscopy Services Pathologist: Gui Castro MD Specimens: A) - Stomach, antrum - cold bxs B) - Stomach, body - cold bxs C) - Duodenum, polyp - cold snare D) - Esophagus, distal, cold bxs 4:05 PM CDT [facility] [employer] [facility] FINAL DIAGNOSIS Stomach, antrum, biopsy - No significant pathologic abnormality - No evidence of H. pylori gastritis seen on the H&E sections Stomach, body, biopsy - No significant pathologic abnormality - No evidence of H. 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 The specimen is filtered and entirely submitted in A1. Received in formalin labeled with the patient's name and stomach body is a 0.7 x 0.2 x 0.2 cm faulkner tissue fragment. The specimen is filtered and entirely submitted in B1. Received in formalin labeled with the patient's name and duodenum polyp are 3 faulkner tissue fragments, 0.8 x 0.4 x 0.4 cm in aggregate. The specimen is filtered and entirely submitted in C1. Received in formalin labeled with the patient's name and esophagus, D is a 0.2 x 0.2 x 0.2 cm faulkner tissue fragment. The specimen is filtered and entirely submitted in D1. 4:05 PM [facility] MICROSCOPIC DESCRIPTION Deeper levels from the duodenal biopsy were examined and showed similar findings. Pancytokeratin immunostain highlights the lining epithelium and shows no evidence of invasive carcinoma. 5 4:05 PM T [facility] OPERATIVE PROCEDURE 1: COLONOSCOPY 2: ESOPHAGOGASTRODUODENOSCOP Y 5 4:05 PM [facility] CLINICAL INFORMATION Malignant neoplasm of right colon (CMS/HCC) [C18.2] History of colon polyps [Z86.0100] C18.2-Malignant neoplasm of right colon (CMS/HCC) Z86.0100-History of colon polyps 5 4:05 PM [facility] COMMENT Unless gross only is specified in the diagnosis, the microscopic examination substantiates the above cited diagnosis The [employer] voice-activated dictation system may have been used in the creation of this report. Inherent to this system is the possibility of errors in syntax, grammar, punctuation, or other areas that could impact interpretation. If there are interpretative questions about the report, please contact the performing pathologist. Immunohistochemical stains were performed, if any, and interpreted at [facility] ([facility]) Laboratory with appropriately staining controls. This test was developed and it's performance characteristics determined by [facility] Lab. It has not been cleared or approved by the US Food and Drug Administration. The FDA does not require this test to go through premarket FDA review. This test is used for clinical purposes, and should not be regarded as investigational or for research. This lab is certified under CLIA to perform high complexity testing. Estrogen and progesterone receptor staining has not been validated in our lab on decalcified tissue; decalcification may decrease immunoreactivity for these and other antigens. Based on ASCO/CAP guidelines, hormone receptor staining greater than or equal to 1% is considered positive. The results indicate the percentage of cells staining positive for the analyte. ER clone [id number] and WY clone [id number] were used with a [employer] multimer/ DAB detection system. Tissue is adequate for ER/WY analysis (6-72 hours formalin fixation) unless otherwise stated. 5 4:05 PM [facility] Tissue ENTIRE STOMACH / Unknown Collection / Unknown 12/27/2024 1:46 PM CDT 12/28/2024 6:09 AM CDT Tissue specimen (specimen) ENTIRE STOMACH / Unknown 12/27/2024 1:46 PM CDT 12/28/2024 6:09 AM CDT Tissue specimen (specimen) ENTIRE DUODENUM / Unknown 12/27/2024 1:48 PM CDT 12/28/2024 6:09 AM CDT Tissue specimen (specimen) (Esophagus, distal) 12/27/2024 1:52 PM CDT 12/28/2024 6:09 AM CDT us May Perkins MD PATHOLOGY/CYTOLOGY ORDERABLES Final Result [facility] LABORATORY SERVICES [facility] CLIA# [id number] [place] [address] * MAMMO 3D ROSS DIAGNOSTIC BILAT W OR WO CAD (11/28/2024 8:01 AM CDT) Anatomical Region Laterality Modality Breast Bilateral Mammography 11/28/2024 8:01 AM CDT Impressions 11/28/2024 8:10 AM CDT IMPRESSION: No suspicious findings to suggest malignancy in either breast. Annual mammography is recommended. OVERALL FINAL ASSESSMENT: BI-RADS CATEGORY 1: Negative. DICTATION LOCATION: [facility] [place] Narrative 11/28/2024 8:10 AM CDT BILATERAL FULL-FIELD DIGITAL DIAGNOSTIC MAMMOGRAM WITH CAD WITH TOMOSYNTHESIS DATE: 11/28/2024 8:01 AM HISTORY: Personal history of Dewey syndrome. 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 TECHNIQUE: Full-field digital craniocaudal, mediolateral and mediolateral oblique projections of both breasts were obtained. Low-dose full-field digital breast tomosynthesis examination was performed with 2D and 3D acquisitions. Computer aided diagnosis was performed. COMPARISON: 11/10/2023 and older. BREAST COMPOSITION: The breasts are heterogeneously dense, which may obscure small masses. FINDINGS: No suspicious mass, suspicious microcalcifications, or architectural distortion is identified in either breast. Computer aided detection was used in the interpretation of this examination. us Clotilde Quezada MD MAMMO ORDERABLES Final R esult * MICROALBUMIN/CREATININE RATIO, RANDOM UR (11/27/2024 6:52 AM CDT) Pathologist [facility] CREATININE, URINE 88 20 - 275 mg/dL [facility] ALBUMIN, URINE 0.8 See Note: mg/dL [facility] Comment: Reference Range: Reference Range Not established ALB/CREAT RATIO, URINE 9 <30 mg/g creat [facility] Comment: The ADA defines abnormalities in albumin excretion as follows: Albuminuria Category Result (mg/g creatinine) Normal to Mildly increased <30 Moderately increased 30-299 Severely increased > OR = 300 The ADA recommends that at least two of three specimens collected within a 3-6 month period be abnormal before considering a patient to be within a diagnostic category. FASTING:YES FASTING: YES Test Performed at: [facility] [address] Celestino Antunez MD 11/27/2024 6:52 AM CDT 11/27/2024 6:53 AM CDT us Beni Wen MD URINE ORDERABLES Final Result [facility] [phone] [facility] [employer] [address] * (ABNORMAL) CBC WITH DIFFERENTIAL (11/27/2024 6:52 AM CDT) Pathologist [facility] WBC 7.8 3.8 - 10.8 Thousand/u L [facility] RBC 4.35 3.80 - 5.10 Million/uL [facility] HEMOGLOBIN 12.5 11.7 - 15.5 g/dL [facility] HEMATOCRIT 39.2 35.0 - 45.0 % [facility] MCV 90.1 80.0 - 100.0 fL [facility] MCH 28.7 27.0 - 33.0 pg [facility] MCHC 31.9(L) 32.0 - 36.0 g/dL [facility] Comment: For adults, a slight decrease in the calculated MCHC value (in the range of 30 to 32 g/dL) is most likely not clinically significant; however, it should be interpreted with caution in correlation with other red cell parameters and the patient's clinical condition. RDW 12.7 11.0 - 15.0 % [facility] PLATELETS 245 140 - 400 Thousand/u L [facility] MPV 10.9 7.5 - 12.5 fL [facility] NEUTROPHIL ABSOLUTE 5,257 1,500 - 7,800 cells/uL [facility] LYMPHOCYTE ABSOLUTE 1,583 850 - 3,900 cells/uL [facility] MONOCYTE ABSOLUTE 671 200 - 950 cells/uL [facility] EOSINOPHIL ABSOLUTE 242 15 - 500 cells/uL [facility] BASOPHILS ABSOLUTE 47 0 - 200 cells/uL [facility] NEUTROPHIL 67.4 % [facility] LYMPHOCYTES 20.3 % [facility] MONOCYTE 8.6 % [facility] EOSINOPHILS 3.1 % [facility] BASOPHILS 0.6 % [facility] Comment: FASTING:YES FASTING: YES Test Performed at: [facility] [address] [address] Celestino Antunez MD Blood 11/27/2024 6:52 AM CDT 11/27/2024 6:53 AM CDT us Beni Wen MD HEMATOLOGY ORDERABLES Final Resu lt [facility] [phone] [facility] [address] [address] * (ABNORMAL) HEMOGLOBIN A1C (11/27/2024 6:52 AM CDT) HEMOGLOBIN A1C 6.6(H) <5.7 % of total Hgb [facility] Comment: For someone without known diabetes, a [...] diabetes for children. ESTIMATED AVERAGE GLUCOSE (MG/DL) 143 mg/dL [employer] [facility] ESTIMATED AVERAGE GLUCOSE (MMOL/L) 7.9 mmol/L [facility] Comment: FASTING:YES FASTING: YES Test Performed at: [facility] [address] [place] [address] Celestino Antunez Blood 11/27/2024 6:52 AM CDT 11/27/2024 6:53 AM CDT us Beni Wen MD CHEMISTRY ORDERABLES Final Resul t [facility] [phone] [facility] [address] [place] [address] * (ABNORMAL) LIPID PANEL (11/27/2024 6:52 AM CDT) CHOLESTEROL 179 <200 mg/dL [facility] HDL 55 > OR = 50 mg/dL [facility] TRIGLYCERIDE 102 <150 mg/dL [facility] LDL CALCULATED 104(H) mg/dL (calc) [facility] Comment: Reference range: <100 Desirable range <100 mg/dL for primary prevention; <70 mg/dL for patients with CHD or diabetic patients with > or = 2 CHD risk factors. LDL-C is now calculated using the Edvin calculation, which is a validated novel method providing better accuracy than the Friedewald equation in the estimation of LDL-C. Gordon MELGOZA et al. KELLEN. 2013;310(19): 4662-1899 (http://education.[employer]/faq/HRG429) CHOL/HDL RATIO 3.3 <5.0 (calc) [facility] NON-HDL CHOLESTEROL 124 <130 mg/dL (calc) [facility] Comment: For patients with diabetes plus 1 major ASCVD risk factor, treating to a non-HDL-C goal of <100 mg/dL (LDL-C of <70 mg/dL) is considered a therapeutic option. Test Performed at: [facility] [address] [facility] [place] [address] Celestino Antunez MD Blood 11/27/2024 6:52 AM CDT 11/27/2024 6:53 AM CDT us Beni Wen MD CHEMISTRY ORDERABLES Final Resul t [facility] [phone] [facility] [address] [facility] [place] [address] * (ABNORMAL) COMPREHENSIVE METABOLIC PANEL (11/27/2024 6:52 AM CDT) GLUCOSE 131(H) 65 - 99 mg/dL [facility] Comment: Fasting reference interval For someone without known diabetes, a glucose value >125 mg/dL indicates that they may have diabetes and this should be confirmed with a follow-up test. BUN 17 7 - 25 mg/dL [facility] CREATININE 0.74 0.50 - 1.03 mg/dL [facility] GFR 97 > OR = 60 mL/min/1. 73m2 [facility] BUN/CREAT RATIO SEE NOTE: (calc) [facility] Comment: Not Reported: BUN and Creatinine are within reference range. SODIUM 138 135 - 146 mmol/L [facility] POTASSIUM 4.4 3.5 - 5.3 mmol/L [facility] CHLORIDE 102 98 - 110 mmol/L [facility] CO2 30 20 - 32 mmol/L [facility] CALCIUM 9.0 8.6 - 10.4 mg/dL [facility] TOTAL PROTEIN 6.9 6.1 - 8.1 g/dL [facility] ALBUMIN 4.1 3.6 - 5.1 g/dL [facility] GLOBULIN 2.8 1.9 - 3.7 g/dL (calc) [facility] ALBUMIN/GLOBULIN RATIO 1.5 1.0 - 2.5 (calc) [facility] BILIRUBIN TOTAL 0.5 0.2 - 1.2 mg/dL [facility] ALKALINE PHOSPHATASE 77 37 - 153 U/L [facility] AST 17 10 - 35 U/L [facility] ALT 22 6 - 29 U/L [facility] Comment: FASTING:YES FASTING: YES Test Performed at: [facility] [address] [place] [address] Celestino Antunez MD Blood 11/27/2024 6:52 AM CDT 11/27/2024 6:53 AM CDT Beni Wen MD CHEMISTRY ORDERABLES Final Resul t Performing Organization Address City/[facility] Co de Phone Number [facility] [phone] [facility] [address] [place] [address] * DIABETES EYE EXAM (01/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) us Abstract Provider HEALTH MAINTENANCE Final Resul t Performing Organization Address City/[facility] Co de Phone Number [facility] [phone] [address] [facility] [address] [place] [address] from Last 3 Months or Most Recently Relevant to Health Maintenance Insurance [employer] [id number] [employer] [id number] [facility] [place] [place] Address: [phone] [place] [address] Advance Directives For more information, please contact: [phone] * Full Code (Latest Code Status on [...] 8:29 AM 10/22/2018 4:20 PM Care Teams Green House Manager Relationship Specialty Start Date End Date Beni Wen MD [address] [place] [id number] PCP - General Internal Medicine 09/18/20
== END 2025-01-22 15:46 | disposition home or self-care (01) ==
LOC: ANHLAB 15:46
PROVIDERS: Visit Provider Internal Medicine Hematology & Oncology
DX: C18.2 Malignant neoplasm of ascending colon (principal)
CPT/HCPCS: 36415; 80053; 82378; 85025